=== PATIENT | male | born 1945 | race Caucasian/White ===

== ENCOUNTER 2024-05-16 16:34 | Emergency (ER) | payer OTHER, SELFPAY ==
[2024-05-16 16:40] VITALS: BMI 28.3
[2024-05-16 16:41] VITALS: BP 139/92
--- NOTE | 2024-05-16 16:43 | ED.GENMED ---
History of Present Illness
General
Chief Complaint: Fall
Source: patient
Time Seen by Provider: 05/16/24 16:38
History of Present Illness
History of Present Illness:
78-year-old male brought to the emergency room by ambulance after suffering a fall at his extended care facility. Patient was observed to trip and fall. No loss of consciousness. He does not take any oral anticoagulants. Patient currently
complaining of pain in his left hand. Patient states he is left-handed. He does not recall the fall however. He is at [facility] due to dementia.
Phy Exam
Physical Exam
Physical Exam:
General: Awake, Alert, Oriented to person only. No acute distress, patient does appear confused
Vitals: unremarkable
Head: Atraumatic
Eyes: Pupils equal, EOMI
Throat: Airway intact, no exudates
Neck: Trachea midline, no tenderness to palpation of the cervical spine
Lungs: Clear and equal b/l
Heart: Regular rate, no murmurs
Abd: Soft, Nontender, No pulsatile mass
Neuro: Nonfocal
Skin: Warm, dry, no rash
Extremities: pulses equal b/l, no edema. Ecchymosis and tenderness noted at the base of the left index finger. There is pain with range of motion and palpation
Course
Orders/Labs/Results
Orders:
Orders
05/16/24 16:43
CT Cervical Spine W/o Iv Contr Urgent
Comment:
Reason For Exam: neck pain s/p fall
CT Head W/o Iv Contrast Urgent
Comment:
Reason For Exam: fall head injury
05/16/24 16:44
Finger(s)/Thumb 2 View Lt [CR Finger(s)/thumb Min 2 Vw Lt] Urgent
Comment:
Reason For Exam: pain after fall
Indicate Which Finger:: Index Finger
05/16/24 18:31
Basic Metabolic Panel Urgent
COVID-19 Antigen Urgent
Source: Nasal Swab
Complete Blood Count/With Diff Urgent
Influenza A+B Rapid Molecular Urgent
ALEJANDRO Source: Nasal Swab
Specimen Description:
05/16/24 19:10
Acetaminophen [Tylenol] 650 mg PO NOW STA
05/16/24 19:13
CR Chest - 2 Views Urgent
Comment:
Reason For Exam: fever
05/16/24 20:26
Amoxicillin 875 mg/Clav 125 mg [Augmentin 875 mg/125 mg] 1 tablet PO NOW STA
Abnormal Lab Results
05/16/24
18:31
MCH 31.3 H pg
(27.0-31.0)
Absolute Lymphs (auto) 1.0 L 10^3/uL
(1.2-3.4)
Absolute Monos (auto) 1.0 H 10^3/uL
(0.1-0.6)
Lymphocytes % 13.4 L %
(20.5-51.1)
Monocytes % 13.9 H %
(1.7-9.3)
05/16/24 18:31
05/16/24 18:31
Vital Signs
Initial and Last Documented VS:
Initial Vital Signs
Temp Pulse Resp BP Pulse Ox
99.5 F 76 20 139/92 95
05/16/24 16:41 05/16/24 16:41 05/16/24 16:41 05/16/24 16:41 05/16/24 16:41
Last Documented Vital Signs
Temp Pulse Resp BP Pulse Ox
100.8 F H 82 20 143/127 95
05/16/24 18:37 05/16/24 21:00 05/16/24 16:54 05/16/24 17:00 05/16/24 21:02
MDM/Problems Addressed
Differential Diagnosis Includes:
subdural, subarachnoid, contusion, uti, viral illness
MDM/Problems Addressed:
Patient [facility] with a [facility]. Head CT shows no acute injury to the head or C-spine. Radiology reads the x-ray has a fracture dislocation. Physical exam not really consistent with a dislocation per se as he has range of motion
and is not limited. Perhaps there is a ligamentous injury which causing some instability of the PIP joint however on exam there really does not appear to be a dislocation. Will logan wrap his fingers. Patient actually not very tolerant of any
sort of manipulation of the finger. Patient noted to have a rectal temperature of 100.8. Flu and COVID are negative. Patient was unable to provide urine and given his agitation we will not go so far as to straight cath him. Will cover with
Augmentin for potential bronchitis or pneumonia and/or UTI.
*Radiology
Radiology exam reviewed: radiology read reviewed
*Pulse Oximetry
Patient hypoxic: no
*Critical Care Note
Total Time (30-74mins, 75-104mins- exclusive of procedures): Not Applicable
Patient Management
Social determinants of health affecting care: Living situation
ED Attending Note
-
Portions of this chart may have been created with voice recognition software.� Occasional wrong word or��sound alike� substitutions may have occurred due to the inherent limitations of voice recognition software.
Discharge Plan
Departure
Patient Disposition: Senior Living/SNF
Date of Disposition: 05/16/24
Time of Disposition: 20:27
Condition: Fair
Discharge Problem:
Head injury, Finger sprain, Fever, Pneumonia
Instructions: Head injury in adults, Finger Fracture ED, Pneumonia
Prescriptions:
New
amoxicillin-pot clavulanate 875-125 mg tablet
1 tab PO ONCE Qty: 20 0RF
No Action
acetaminophen 325 mg Tablet
650 mg PO Q6H PRN (Reason: pain)
atorvastatin 20 mg Tablet
20 mg PO HS
cyanocobalamin (vitamin B-12) [Vitamin B-12] 1,000 mcg Tablet
2,000 mcg PO DAILY
amlodipine 5 mg Tablet
5 mg PO DAILY
triamcinolone acetonide 0.1 % Cream
1 applic TOPICAL BID
Rx Instructions:
apply to chest and back topically every morning and at bedtime for rash
lorazepam 0.5 mg Tablet
0.5 mg PO Q12H PRN (Reason: anxiety)
escitalopram oxalate 5 mg Tablet
5 mg PO DAILY
cholecalciferol (vitamin D3) [Vitamin D3] 50 mcg (2,000 unit) Capsule
100 mcg PO HS
memantine 14 mg Capsule,Sprinkle,Er 24hr
14 mg PO DAILY
Adults Multivitamin 18 mg iron-400 mcg-25 mcg Tablet
2 tab PO HS
Referrals:
Evan Soto DO [Family Provider] -
Interventions
Interventions:
*Risk Screen - Suicide Last Done: 05/16/24 16:48
*General Assessment Last Done: 05/16/24 16:48
*Neglect/Abuse Screening Last Done: 05/16/24 16:48
ED- Fall Risk Assessment Last Done: 05/16/24 16:54
*ED COVID-19 Vaccine History Last Done: 05/16/24 16:47
*Nursing Disposition Last Done: 05/16/24 21:02
ED-Musculoskeletal Assessment Last Done: 05/16/24 16:54
ED- Neurological Assessment Last Done: 05/16/24 16:54
ED-Skin Assessment Last Done: 05/16/24 16:54
Discharge Date and Time
Discharge Date/Time: 05/16/24 21:10
Print Language: HEBREW
[2024-05-16 16:54] VITALS: BP 139/92
--- NOTE | 2024-05-16 16:56 | EDRN ---
Dr. Don was at the pts bedside and removed cervical collar that EMS placed
[2024-05-16 17:00] VITALS: BP 143/127
[2024-05-16 18:40] LABS: % Basophils 0.7 % (0-2); % Eosinophils 1.1 % (0-6); % Immature Granulocytes 0.4 % (0-0.5); % Lymphocytes 13.4 % (20.5-51.1); % Monocytes 13.9 % (1.7-9.3); % Neutrophils 70.5 % (42.2-75.2); Absolute Basophils 0.1 10^3/uL (0-0.2); Absolute Eosinophils 0.1 10^3/uL (0-0.7); Absolute Neutrophils 5.2 10^3/uL (1.4-6.5); Hematocrit 44.2 % (39.0-52.0); Hemoglobin 15.2 g/dL (13.0-18.0); Mean Corp Hgb Conc. 34.4 g/dL (33.0-37.0); Mean Corpuscular Hgb 31.3 pg (27.0-31.0); Mean Corpuscular Volume 91.1 fL (80.0-94.0); Mean Platelet Volume 9.9 fL (7.4-10.4); Nucleated Red Blood Cells % 0 % (-); Platelet Count 227 10^3/uL (130-400); Red Blood Cell Count 4.85 10^6/uL (4.70-6.10); Red Cell Dist. Width 13.4 % (11.5-14.5); White Blood Cell Count 7.4 10^3/uL (4.8-10.8)
[2024-05-16 18:57] LABS: COVID-19 Antigen Negative (Negative)
[2024-05-16 19:01] LABS: Blood Urea Nitrogen 19 mg/dl (9-20); Calcium 10.1 mg/dl (8.4-10.2); Carbon Dioxide 25 mmol/L (22-30); Chloride 104 mmol/L (98-107); Estimated Creatinine Clearance 77 ml/min; Glucose 94 mg/dl (70-99); Sodium 139 mmol/L (135-145); eGFR > 60.00
[2024-05-16] MEDS: TYLENOL 650 MG PO (19:16)
[2024-05-16] MEDS: AUGMENTIN 875 MG/125 MG 1 TABLET PO (20:43)
== END 2024-05-16 21:10 ==
LOC: EMR 16:34
PROVIDERS: EMERGENCY PHYSICIAN Emergency Medicine; FAMILY PHYSICIAN Internal Medicine
DX: S09.90XA Unspecified injury of head, initial encounter (principal); S63.611A Unspecified sprain of left index finger, initial encounter; S60.022A Contusion of left index finger without damage to nail, initial encounter; W01.0XXA Fall on same level from slipping, tripping and stumbling without subsequent striking against object, initial encounter; J18.9 Pneumonia, unspecified organism; F03.90 Unspecified dementia, unspecified severity, without behavioral disturbance, psychotic disturbance, mood disturbance, and anxiety
CPT/HCPCS: 99284; 70450; 71046; 72125; 73140; 80048; 85025; 87502; 87811

== ENCOUNTER 2024-06-05 06:13 | Inpatient (IN) | payer OTHER, SELFPAY ==
[2024-06-05] VITALS (12 sets, daily range): BP systolic 122–148; BP diastolic 59–88; BMI 26.2
[2024-06-05 00:44] LABS: % Basophils 0.2 % (0-2); % Eosinophils 0.1 % (0-6); % Immature Granulocytes 2.1 % (0-0.5); % Monocytes 3.5 % (1.7-9.3); % Neutrophils 92.1 % (42.2-75.2); Absolute Immature Granulocytes 0.4 10^3/uL (0-0.05); Absolute Lymphocytes 0.4 10^3/uL (1.2-3.4); Absolute Monocytes 0.7 10^3/uL (0.1-0.6); Hematocrit 46.2 % (39.0-52.0); Mean Corp Hgb Conc. 34.6 g/dL (33.0-37.0); Mean Corpuscular Hgb 31.9 pg (27.0-31.0); Mean Platelet Volume 10.9 fL (7.4-10.4); Nucleated Red Blood Cells % 0 % (-); Platelet Count 264 10^3/uL (130-400); Red Blood Cell Count 5.02 10^6/uL (4.70-6.10); Red Cell Dist. Width 13.6 % (11.5-14.5); White Blood Cell Count 18.4 10^3/uL (4.8-10.8)
[2024-06-05 00:53] LABS: COVID-19 Antigen Negative (Negative)
[2024-06-05 01:05] LABS: ALT (SGPT) 67 U/L (0-50); AST (SGOT) 35 U/L (17-59); Alkaline Phosphatase 99 U/L (38-126); Blood Urea Nitrogen 22 mg/dl (9-20); Calcium 9.2 mg/dl (8.4-10.2); Carbon Dioxide 25 mmol/L (22-30); Chloride 106 mmol/L (98-107); Estimated Creatinine Clearance 94 ml/min; Glucose 159 mg/dl (70-99); Lipase 1127 U/L (23-300); Potassium 4.2 mmol/L (3.5-5.1); Sodium 140 mmol/L (135-145); Total Bilirubin 0.8 mg/dl (0.2-1.3); Total Protein 6.6 g/dl (6.3-8.2); eGFR > 60.00
[2024-06-05 01:24] LABS: Urine Albumin 1+ (Neg - Trace); Urine Bilirubin Negative (Negative); Urine Character Clear (Clear); Urine Color Yellow; Urine Glucose Negative (Negative); Urine Ketone 1+ (Negative); Urine Leukocyte Negative (Negative); Urine Nitrite Negative (Negative); Urine Occult Blood Negative (Negative); Urine Specific Gravity 1.025 (<1.030); Urine Urobilinogen Negative (Neg - 1+)
[2024-06-05 01:50] LABS: Urine Bacteria Moderate (Negative); Urine Mucus Few; Urine Red Blood Cell 0-2 /HPF (0-2); Urine White Cell 0-2 /HPF (0-5)
--- NOTE | 2024-06-05 02:41 | ED.GENMED ---
History of Present Illness
General
Chief Complaint: Abdominal Symptoms
Time Seen by Provider: 06/05/24 02:41
History of Present Illness
History of Present Illness:
TIME OF INITIAL ENCOUNTER: 2:50 AM
HPI: Patient comes in from a memory care unit as he was found to be hypoxic and was vomiting. The patient is a very poor historian. He reportedly is at his baseline mental status. He was found to have vomitus on his T-shirt upon arrival. He did
have a formed bowel movement here.
EXAM:
GENERAL: Appears in no distress
HEENT: Slightly dry oral mucosa
CARDIOVASCULAR: Regular rate and rhythm
PULMONARY: No respiratory distress, breathing is nonlabored, equal and clear breath sounds
ABDOMEN: Soft but mild epigastric tenderness
NEUROLOGIC: He is awake but confused, the patient has evidence of dementia, not oriented to month or place, strength is equal in all extremities
EXTREMITIES: Moves all extremities equally, no tenderness, no edema
PYSCHIATRIC: Very limited historian, poor insight and judgment
NUMBER AND COMPLEXITY OF PROBLEMS ADDRESSED AT THE ENCOUNTER
� Chronic conditions affecting care: Dementia, high blood pressure, hyperlipidemia, anxiety/depression, anemia
� Acute Exacerbation and/or Progression of Chronic Illness: Lives at home
� Differential Diagnosis includes: Pneumonia, aspiration, pancreatitis, bowel obstruction, viral syndrome
AMOUNT AND/OR COMPLEXITY OF DATA TO BE REVIEWED AND ANALYZED
� I performed an independent evaluation of and my interpretation is:
EKG:
CT: CT suggest atelectasis versus infection of the lung bases; CT of the abdomen pelvis relatively unremarkable
X-rays:
Laboratory Studies: White count 18.4, hemoglobin normal, lipase 1127, 1+ ketones, no clear sign of infection on urinalysis
Other:
� Review of other/old records: The patient was seen here after a fall and fever earlier this month
� Clinical information was obtained by an independent historian: [facility] care
� Prescriptions/Medications Considered but not given:
� Further testing considered but not performed:
RISK OF COMPLICATIONS AND/OR MORBIDITY OR MORTALITY OF PATIENT MANAGEMENT
� Social determinants of health affecting care: Resides at [facility]
� Discussion with other providers: Dr. Cerna for admission as patient is hypoxic prior to administration of nasal cannula oxygen
� Escalation of care including admission/observation vs risk of discharge considered: The patient is found to be hypoxic with room air sats of 88%. White count is elevated and CT suggest the possibility of pneumonia at the lung
bases. Placed on antibiotics. CT imaging suggest no sign of pancreatitis however the lipase is over 1100 and he does have some epigastric pain�he was given IV fluids. Will plan to keep in the hospital for further evaluation.
ANY OTHER UPDATES:
Phy Exam
Physical Exam
Physical Exam:
See HPI
Course
Orders/Labs/Results
Orders:
Orders
06/05/24 00:25
COVID-19 Antigen Urgent
Source: Nasal Swab
Complete Blood Count/With Diff Urgent
Comprehensive Metabolic Panel Urgent
Lipase Urgent
Influenza A+B Rapid Molecular Urgent
ALEJANDRO Source: Nasal Swab
Specimen Description:
06/05/24 00:29
CR Chest - 2 Views Urgent
Comment:
Reason For Exam: hypoxia
06/05/24 01:08
Straight cath- Treatment ONCE
06/05/24 01:10
Urinalysis Reflex To Culture Urgent
Date Specimen was Collected: 06/05/24
Time Specimen was Collected: 01:08
Urine Microscopic Reflex Cult Urgent
Urine Culture Urgent
ALEJANDRO Source: U
Specimen Description:
Date Specimen was Collected: 06/05/24
Time Specimen was Collected: 01:08
06/05/24 02:42
CT Chest/abd/pel W Iv Cont Urgent
Comment:
Reason For Exam: sob, elevated lipase, vomiting
06/05/24 02:43
0.9% Sodium Chloride 500 ml [Nss] 500 ml IV BOLUS
06/05/24 04:41
Electrocardiogram (*1) Urgent
Reason for Study: Chest Pain
EKG- Treatment ONCE
06/05/24 04:44
Cefepime HCl [Maxipime] 1,000 mg IV NOW STA
06/05/24 05:09
Sterile Water [Sterile Water For Injection] 10 ml .ROUTE .STK-MED ONE
06/05/24 05:23
Vancomycin [Vancocin] 2,000 mg 0.9% Sodium Chloride 500 ml [Nss] 500 ml IV NOW
06/05/24 05:58
Admit/Transfer Patient As Directed
Co-Sign Provider:
Level of Care: Inpatient admission
Assign to:: Telemetry
Physician / Group: Nehemiah
Diagnosis: Pneumonia, Pancreatitis
Reason for Telemetry: Arrhythmia
Date to Stop Telemetry: 06/08/24
Time to Stop Telemetry: 11:00
Reason for Hospitalization: Pneumonia, Pancreatitis
Expected length of stay greater than two midnights?: Yes
ELOS- Estimated Length of Stay in days: 3
I certify the patient meets the requirements for IP care: Yes
PRN Pain Medication Management As Directed
May give lesser potent ordered pain med per pt: Yes
preference::
Protocol:: Medication orders for pain may be administered in a
manner that supports deferring to patient preference
when the pt is:
- Requesting an ordered lesser potent pain medication.
Least to most potent pain medications are defined
as: acetaminophen < NSAID < tramadol < opioids
(morphine, oxycodone, hydromorphone).
- Requesting a lesser dose of the same medication IF
ORDERED.
- Requesting a less intrusive route of administration
if both routes are prescribed by the provider (PO <
IV).
06/05/24 05:59
Code Status As Directed
Resuscitation Status: Do not resuscitate
Based on pt advanced directive or healthcare POA form: Yes
DNR Bracelet Application ONCE
06/08/24 11:00
DC Protocol for Telemetry ONCE
Abnormal Lab Results
06/05/24 06/05/24
00:25 01:10
WBC 18.4 H 10^3/uL
(4.8-10.8)
MCH 31.9 H pg
(27.0-31.0)
MPV 10.9 H fL
(7.4-10.4)
Abs Immat Gran (auto) 0.4 H 10^3/uL
(0-0.05)
Absolute Neuts (auto) 17.0 H 10^3/uL
(1.4-6.5)
Absolute Lymphs (auto) 0.4 L 10^3/uL
(1.2-3.4)
Absolute Monos (auto) 0.7 H 10^3/uL
(0.1-0.6)
Immature Gran % 2.1 H %
(0-0.5)
Neutrophils % 92.1 H %
(42.2-75.2)
Lymphocytes % 2.0 L %
(20.5-51.1)
BUN 22 H mg/dl
(9-20)
Glucose 159 H mg/dl
(70-99)
ALT 67 H U/L
(0-50)
Lipase 1127 H* U/L
(23-300)
Urine Ketones 1+ A
(Negative)
Urine Bacteria (Reflex) Moderate A
(Negative)
Urine Albumin (Reflex) 1+ A
(Neg - Trace)
06/05/24 00:25
06/05/24 00:25
Vital Signs
Initial and Last Documented VS:
Initial Vital Signs
Temp Pulse Resp BP Pulse Ox
37.4 C 83 23 126/72 88
06/05/24 00:05 06/05/24 00:05 06/05/24 00:05 06/05/24 00:05 06/05/24 00:05
Last Documented Vital Signs
Temp Pulse Resp BP Pulse Ox
37.4 C 87 17 128/78 94
06/05/24 00:05 06/05/24 04:15 06/05/24 04:15 06/05/24 03:00 06/05/24 03:41
*Critical Care Note
Total Time (30-74mins, 75-104mins- exclusive of procedures): Not Applicable
ED Attending Note
-
Portions of this chart may have been created with voice recognition software.� Occasional wrong word or��sound alike� substitutions may have occurred due to the inherent limitations of voice recognition software.
Discharge Plan
Departure
Patient Disposition: Admit
Date of Disposition: 06/05/24
Time of Disposition: 04:47
Presentation/result/management discussed w/ accepting MD/DO: Hospitalist
Discharge Problem:
Pneumonia
Interventions
Interventions:
*Risk Screen - Suicide Last Done: 06/05/24 00:05
*General Assessment Last Done: 06/05/24 00:05
*Neglect/Abuse Screening Last Done: 06/05/24 00:05
ED- Fall Risk Assessment Last Done: 06/05/24 00:34
*ED COVID-19 Vaccine History Last Done: 06/05/24 00:05
HW-Lrfmss-Dotvwfahqd Assessment Last Done: 06/05/24 00:32
ED- Cardiac Assessment Last Done: 06/05/24 00:32
ED- Pulmonary Assessment Last Done: 06/05/24 00:32
[2024-06-05] MEDS: NSS 500 IV (03:39)
[2024-06-05] MEDS: MAXIPIME 1000 MG IV (05:14)
--- NOTE | 2024-06-05 06:05 | HPS.HSE ---
Family Physician
-
Family Physician: Evan Soto
Chief Complaint
-
N/V, Hypoxemia
History of Present Illness
Patient is a 78y M with PMH significant for senile dementia who presents to ED from local memory care unit for evaluation of hypoxemia. [facility] patient developed N/V x 3 episodes this evening. Following this he appeared more SOB and
oxygen saturations were noted to be in the 80s on room air. Patient was transported to the ED for further evaluation.
Patient is unable to contribute further to this history. He will answer questions at times - but accuracy / appropriateness of his answers are highly suspect. Other times he will simply parrot the questioner.
Patient was seen recently in the ED for fever (05/16). He was prescribed Augmentin at that time for a 10 day course for suspected pneumonia.
Medical History
Past Medical History
Past Medical History: Reports Other
Additional Past Medical History:
Senile Dementia
Anxiety / Depression
Hypertension
Past Surgical History: Reports Other
Additional Past Surgical History:
None Known
Social History
Unable to obtain full social history at this time due to: Dementia
Family History
Family History: Unable to Obtain
Allergies / Home Medications
Allergies reflects when Allergies were last updated in [facility].
Home Medications with original date entered in [facility]
Allergy/Medication List:
Allergies
Allergy/AdvReac Type Severity Reaction Status Date / Time
No Known Allergies Allergy Verified 06/05/24 00:04
Home Medications
acetaminophen 325 mg tablet 650 mg PO Q6H PRN pain 05/16/24
amlodipine 5 mg tablet 5 mg PO DAILY 05/16/24
atorvastatin 20 mg tablet 20 mg PO HS 05/16/24
cholecalciferol (vitamin D3) 50 mcg (2,000 unit) capsule (Vitamin D3) 100 mcg PO HS 05/16/24
cyanocobalamin (vitamin B-12) 1,000 mcg tablet (Vitamin B-12) 2,000 mcg PO DAILY 05/16/24
escitalopram oxalate 5 mg tablet 5 mg PO DAILY 05/16/24
lorazepam 0.5 mg tablet 0.5 mg PO Q12H PRN anxiety 05/16/24
memantine 14 mg capsule sprinkle,extended release 24hr 14 mg PO DAILY 05/16/24
multivit with minerals-iron 18 mg-folic ac 400 mcg-vit K 25 mcg tablet (Adults Multivitamin) 2 tab PO HS 05/16/24
triamcinolone acetonide 0.1 % topical cream 1 applic topical BID rash 05/16/24
Review of Systems
-
Unable to obtain full review of systems at this time due to: Dementia
Physical Exam
Vital Signs
Vital Signs
Temp Pulse Resp BP Pulse Ox
99.4 F 87 17 128/78 94
06/05/24 00:05 06/05/24 04:15 06/05/24 04:15 06/05/24 03:00 06/05/24 03:41
Physical Exam
General: Other (78y M awake and alert. Not in evident distress. Follows commands.)
HEENT: Moist mucous membranes and PERRLA
Respiratory: Other (Coarse breath sounds at bases. No wheezes.)
Cardiac: S1/S2, Regular Rhythm and Murmur (II/ DEAN)
GI: Soft, Non Tender, Non Distended and Normal Bowel Sounds
Musculoskeletal: No Clubbing, No Cyanosis and No Edema
Neuro: Awake and Alert; No Oriented
Laboratory Results
-
06/05/24 00:25
06/05/24 00:25
Laboratory Results
Total Bilirubin 0.8 mg/dl (0.2-1.3) 06/05/24 00:25
AST 35 U/L (17-59) 06/05/24 00:25
ALT 67 U/L (0-50) H 06/05/24 00:25
Alkaline Phosphatase 99 U/L (38-126) 06/05/24 00:25
Lipase 1127 U/L (23-300) H* 06/05/24 00:25
Impression/Plan
-
A/P: Patient is a 78y M with PMH significant for dementia who presents from memory care unit this evening for evaluation of N/V and hypoxemia.
Acute Pancreatitis
- Admit for further evaluation and treatment.
- Patient with onset of N/V x multiple episodes this evening.
- No evident abdominal pain / tenderness - though difficult to ascertain history.
- CT A/P unremarkable. Exam unremarkable.
- NPO for now. IVFs. Antiemetics if needed.
- Follow for any recurrent emesis / clinical changes / etc.
- Check US to evaluate for gallstones, etc.
Aspiration Pneumonia / Pneumonitis
Acute Hypoxemic Respiratory Insufficiency secondary to the above
- History suggests aspiration event given hypoxemia s/p episodes of emesis.
- Bibasilar opacities seen on CT.
- Abx for now with ceftriaxone / doxy.
- Supportive care including O2, nebs, etc.
- Aspiration precautions. Speech eval.
- Follow for clinical improvement.
Benign Hypertension
- Stable. Continue current medication with holding parameters.
Senile Dementia
Anxiety / Depression
- Advanced dementia at baseline.
- Continue current medication regimen for memory / mood.
- Follow for agitation / delirium during acute hospitalization.
DVT Prophylaxis: Lovenox
Code Status: DNR
[2024-06-05] MEDS: VANCOCIN 540 MG IV (06:08)
[2024-06-05] MEDS: LR 1000 IV ×2 (10:22→17:44)
[2024-06-05] MEDS: NAMENDA 5 MG PO ×2 (10:27→20:42)
[2024-06-05] MEDS: NORVASC 5 MG PO (10:27)
[2024-06-05] MEDS: VIBRAMYCIN 100 MG PO ×2 (10:28→20:42)
[2024-06-05] MEDS: LEXAPRO 5 MG PO (10:28)
[2024-06-05] MEDS: NSS (PRESERVATIVE FREE) 10 ML IV (10:28)
[2024-06-05] MEDS: PROTONIX IV 40 MG IV (10:28)
[2024-06-05] MEDS: TRIAMCINOLONE ACETONIDE 0.1% CREAM 1 APPLIC TOPICAL ×2 (10:29→20:43)
[2024-06-05] MEDS: FLUSH (NSS) 1 FLUSH IV (10:30)
[2024-06-05] MEDS: ROCEPHIN 1000 MG IV (10:31)
[2024-06-05] MEDS: FLUSH (NSS) 10 FLUSH IV ×2 (10:31→10:32)
[2024-06-05] MEDS: STERILE WATER FOR INJECTION 10 ML IV (10:31)
--- NOTE | 2024-06-05 10:43 | W.PN.HOSP.TC ---
Today's Communication/Plan
-
See plan
Assessment / Plan
Assessment / Plan
Impression:
Patient is a 78y M with PMH significant for dementia who presents from memory care unit this evening for evaluation of N/V and hypoxemia.
Acute hypoxic respiratory failure.
Bilateral pulmonary infiltrates
� Differential diagnosis aspiration pneumonia/pneumonitis, versus atelectasis, versus thromboembolism
Episode of emesis at the assisted living
Elevated lipase with concern for pancreatitis
Other conditions:
Benign hypertension pain
Senile dementia
Anxiety/depression
Plan:
Acute hypoxic respiratory failure
Patient with no distress.
Oxygen saturations down to 85% on room air
Patient is a poor historian, although denies any chest pain, shortness of breath at rest.
Chest x-ray with bibasilar atelectasis also seen on CT scan of the abdomen.
Differential diagnosis aspiration pneumonia/pneumonitis, versus atelectasis, could not exclude thromboembolism given degree of hypoxia out of proportion to imaging findings, no prior history of CHF and no evidence of volume overload
Check cardiac markers including troponin and BNP, check D-dimer
Continue oxygen supplementation.
Empiric antibiotics to cover aspiration: Ceftriaxone/doxycycline.
If indicated consider CT PE
Speech and swallow evaluation
Elevated lipase with no clinical evidence for acute pancreatitis.
Benign abdominal examination and the patient with advanced dementia and who has been limited historian
Normal LFT
No evidence of hepatobiliary abnormalities on imaging including CT scan and ultrasound
Suspect elevated lipase triggered by recurrent emesis
Clear liquid diet
Wean off IV fluids.
Follow LFTs/lipase
Benign Hypertension
- Stable. Continue current medication with holding parameters.
Senile Dementia
Anxiety / Depression
- Advanced dementia at baseline.
- Continue current medication regimen for memory / mood.
- Follow for agitation / delirium during acute hospitalization.
DVT Prophylaxis: Lovenox
Code Status: DNR
Anticipated Discharge: 24 - 48 hours
Subjective/Interval History
-
Date of Service: June 05, 2024
Objective Data
-
Labs:
Laboratory Results
06/05/24
00:25
WBC 18.4 H
Hgb 16.0
Hct 46.2
Plt Count 264
Sodium 140
Potassium 4.2
Chloride 106
Carbon Dioxide 25
BUN 22 H
Creatinine 0.7
Glucose 159 H
Calcium 9.2
Total Bilirubin 0.8
AST 35
ALT 67 H
Alkaline Phosphatase 99
Vital Signs:
Vital Signs
Temp Pulse Resp BP Pulse Ox
98.0 F 84 17 148/77 94
06/05/24 07:16 06/05/24 07:00 06/05/24 07:00 06/05/24 06:00 06/05/24 07:00
Physical Exam
-
General: Well Developed and No Apparent Distress
HEENT: Normocephalic, Atraumatic and Moist Mucous Membranes
Respiratory: Clear to Auscultation
Cardiac: Regular Rhythm and S1/S2; Negative Murmur, Rub or Gallop
GI: Soft, Nontender, Nondistended and Normal Bowel Sounds; Negative Organomegaly
Rectal: Deferred by Provider
Musculoskeletal: No Clubbing, No Cyanosis and No Edema
Skin: Negative Rash
Neuro: Nonfocal/Grossly Intact
--- NOTE | 2024-06-05 10:55 | PTOTSP ---
Speech Language Pathology
Pt seen for clinical bedside swallow evaluation. Set pt up to brush teeth. He was able to brush his own teeth, although perseverating with this. Did not follow directions to spit out water after swishing in oral cavity. P.O. trials of thin
liquids provided (limited to clear liquids per MD at this time). Adequate A-P transit noted with limited consistency with no overt signs of aspiration. Pt is at increased risk for aspiration given cognitive status.
Recommend:
(1) Thin liquids (limited to clear liquids at this time per MD)
(2) Aspiration precautions: full supervision with assist as needed, slow rate
(3) Meds as tolerated
(4) SENIOR [employer]NA[employer]INE[employer]ING to continue to follow once allowed solids
[2024-06-05 11:16] LABS: D-Dimer 0.58 ug/mlFEU (0.00-0.50)
[2024-06-05 12:06] LABS: NT-proBNP 177 pg/ml; Troponin I < 0.012 ng/ml
--- NOTE | 2024-06-05 13:36 | PTCARENOTE ---
Pt confused - oriented to only self. Pt increasingly uncooperative. Took oxygen off and would not let me put back on. Can not reason w/ pt. Pt keeps grabbing my hands and trying to bite me.
--- NOTE | 2024-06-05 13:44 | CM ---
C< spoke with nursing at [facility]
Pt is from their memory care unit
He is AxO to self only, no behaviors
Not very conversational, short responses, able to follow commands
Indep with ambulation and transfers without an AD, no home O2 at baseline
Pt is a 1 personal assist for personal care, mostly cueing
Incontinent of B/B, wears depends
PCP- Evan Soto
Rx- Denzel Zhou
Nursing notes pt can return on dc, even in weakened state
Can return at a 2 person assist if needed if needed
Preferred VN provider is Karl
Call to dtr/Lurdes to introduce self and explain role
TT/Dr Sinha requesting medical update to dtr
Discharge Disposition- return to [facility] memory care likely with Karl, watch O2 needs
[2024-06-05] MEDS: LOVENOX 40 MG SC (17:45)
--- NOTE | 2024-06-05 22:11 | PTCARENOTE ---
Patient removing oxygen tubing Reorientation provided, but not successful. Patient is confused and continues to remove oxygen tubing after education. O@ saturation taken on room air, saturation is 85%. Mitts applied to both hands and oxygen
reapplied. WHEEL MOLDER made aware. See new order for mitts.
[2024-06-06] VITALS (7 sets, daily range): BP systolic 119–155; BP diastolic 67–86; BMI 26.0
[2024-06-06] MEDS: LR 1000 IV ×2 (02:25→07:26)
[2024-06-06] MEDS: ROCEPHIN 1000 MG IV (07:28)
[2024-06-06] MEDS: STERILE WATER FOR INJECTION 10 ML IV (07:28)
[2024-06-06] MEDS: PROTONIX IV 40 MG IV (07:28)
[2024-06-06] MEDS: NORVASC 5 MG PO (07:29)
[2024-06-06] MEDS: NAMENDA 5 MG PO ×2 (07:29→20:15)
[2024-06-06] MEDS: VIBRAMYCIN 100 MG PO ×2 (07:29→20:20)
[2024-06-06] MEDS: NSS (PRESERVATIVE FREE) 10 ML IV (07:29)
[2024-06-06] MEDS: LEXAPRO 5 MG PO (07:29)
[2024-06-06] MEDS: TRIAMCINOLONE ACETONIDE 0.1% CREAM 1 APPLIC TOPICAL ×2 (07:30→20:15)
[2024-06-06] MEDS: FLUSH (NSS) 1 FLUSH IV ×2 (07:32→08:34)
[2024-06-06 07:51] LABS: % Basophils 0.3 % (0-2); % Eosinophils 0.7 % (0-6); % Immature Granulocytes 0.1 % (0-0.5); % Lymphocytes 14.6 % (20.5-51.1); % Monocytes 14.1 % (1.7-9.3); % Neutrophils 70.2 % (42.2-75.2); Absolute Eosinophils 0.1 10^3/uL (0-0.7); Absolute Neutrophils 4.8 10^3/uL (1.4-6.5); Hematocrit 40.5 % (39.0-52.0); Hemoglobin 13.9 g/dL (13.0-18.0); Mean Corp Hgb Conc. 34.3 g/dL (33.0-37.0); Mean Corpuscular Volume 93.3 fL (80.0-94.0); Nucleated Red Blood Cells % 0 % (-); Platelet Count 203 10^3/uL (130-400); Red Blood Cell Count 4.34 10^6/uL (4.70-6.10); Red Cell Dist. Width 13.5 % (11.5-14.5); White Blood Cell Count 6.8 10^3/uL (4.8-10.8)
--- NOTE | 2024-06-06 15:12 | PTOTSP ---
Dysphagia Therapy
Impression: Patient with behaviors (i.e., use of large bolus size with solids) when self-feeding that elevate risk for dysphagia. Infrequent signs concerning for possible aspiration noted with thin liquids (i.e., cough x1 with thin via cup, cannot
distinguish between aspiration vs cough from PNA at the bedside.)
Plan of care:
1. Regular, Thin Liquids
2. Medications as best tolerated (cut in puree today per RN)
3. Strategies: full supervision, assist to cut foods into bite sized pieces and self-feed, small sips/bites, slow rate, ensure patient swallows before next sip/bite
4. Dysphagia therapy at the acute care level to determine if diet level appropriate, consider video swallow study to objectively assess swallow function given advanced dementia and elevated risk for change to sensory response to aspiration
--- NOTE | 2024-06-06 15:13 | W.PN.HOSP.TC ---
Today's Communication/Plan
-
Continue antibiotics.
Attempt to wean off oxygen as tolerated
Advance diet with aspiration precautions per
Follow CMP and lipase
Assessment / Plan
Assessment / Plan
Impression:
Patient is a 78y M with PMH significant for dementia who presents from memory care unit this evening for evaluation of N/V and hypoxemia.
Acute hypoxic respiratory failure.
Aspiration pneumonia/pneumonitis bilateral pulmonary infiltrates
Episode of emesis at the assisted living
Elevated lipase with concern for pancreatitis
Other conditions:
Benign hypertension pain
Senile dementia
Anxiety/depression
Plan:
Acute hypoxic respiratory failure secondary to
Aspiration pneumonia and pneumonitis
Patient with no distress.
Hypoxemia with oxygen saturations down to 85% on room air improving and currently downgraded from 6 to 3 L of nasal cannula oxygen
Patient is a poor historian, although denies any chest pain, shortness of breath at rest.
Chest x-ray with bibasilar atelectasis also seen on CT scan of the abdomen.
Volume status compensated, negative cardiac markers leaning away from CHF decompensation or thromboembolism
Empiric antibiotics to cover aspiration: Ceftriaxone/doxycycline.
Speech and swallow evaluation appreciated
Elevated lipase with no clinical evidence for acute pancreatitis.
Benign abdominal examination and the patient with advanced dementia and who has been limited historian
Normal LFT
No evidence of hepatobiliary abnormalities on imaging including CT scan and ultrasound
Suspect elevated lipase triggered by recurrent emesis
Clear liquid diet
Wean off IV fluids.
Follow LFTs/lipase
Benign Hypertension
- Stable. Continue current medication with holding parameters.
Senile Dementia
Anxiety / Depression
- Advanced dementia at baseline.
- Continue current medication regimen for memory / mood.
- Follow for agitation / delirium during acute hospitalization.
DVT Prophylaxis: Lovenox
Code Status: DNR
Anticipated Discharge: 24 - 48 hours
Subjective/Interval History
-
Date of Service: June 06, 2024
Objective Data
-
Labs:
Laboratory Results
06/06/24
06:40
WBC 6.8
Hgb 13.9
Hct 40.5
Plt Count 203 D
Sodium Pending
Potassium Pending
Chloride Pending
Carbon Dioxide Pending
BUN Pending
Creatinine Pending
Glucose Pending
Calcium Pending
Total Bilirubin Pending
AST Pending
ALT Pending
Alkaline Phosphatase Pending
Vital Signs:
Vital Signs
Temp Pulse Resp BP Pulse Ox
99.1 F 83 20 119/75 96
06/06/24 15:08 06/06/24 15:08 06/06/24 15:08 06/06/24 15:08 06/06/24 15:08
Physical Exam
-
General: Well Developed and No Apparent Distress
HEENT: Normocephalic, Atraumatic and Moist Mucous Membranes
Respiratory: Clear to Auscultation
Cardiac: Regular Rhythm and S1/S2; Negative Murmur, Rub or Gallop
GI: Soft, Nontender, Nondistended and Normal Bowel Sounds; Negative Organomegaly
Rectal: Deferred by Provider
Musculoskeletal: No Clubbing, No Cyanosis and No Edema
Skin: Negative Rash
Neuro: Nonfocal/Grossly Intact
[2024-06-06 15:29] LABS: ALT (SGPT) 49 U/L (0-50); AST (SGOT) 31 U/L (17-59); Albumin 3.3 g/dl (3.5-5.0); Alkaline Phosphatase 78 U/L (38-126); Blood Urea Nitrogen 13 mg/dl (9-20); Calcium 8.6 mg/dl (8.4-10.2); Carbon Dioxide 27 mmol/L (22-30); Chloride 103 mmol/L (98-107); Estimated Creatinine Clearance 110 ml/min; Glucose 87 mg/dl (70-99); Lipase 41 U/L (23-300); Potassium 3.8 mmol/L (3.5-5.1); Sodium 136 mmol/L (135-145); Total Bilirubin 0.5 mg/dl (0.2-1.3); Total Protein 5.6 g/dl (6.3-8.2); eGFR > 60.00
[2024-06-06 15:41] LABS: Direct Bilirubin 0.1 mg/dl (0.0-0.4)
[2024-06-06] MEDS: LOVENOX 40 MG SC (17:02)
[2024-06-07 03:10] VITALS: BP 128/79
[2024-06-07 06:00] VITALS: BMI 25.4
[2024-06-07 07:15] VITALS: BP 155/86
[2024-06-07] MEDS: LEXAPRO 5 MG PO (09:10)
[2024-06-07] MEDS: NSS (PRESERVATIVE FREE) 10 ML IV (09:10)
[2024-06-07] MEDS: VIBRAMYCIN 100 MG PO ×2 (09:10→19:39)
[2024-06-07] MEDS: PROTONIX IV 40 MG IV (09:10)
[2024-06-07] MEDS: NORVASC 5 MG PO (09:11)
[2024-06-07] MEDS: NAMENDA 5 MG PO ×2 (09:12→19:39)
[2024-06-07] MEDS: TRIAMCINOLONE ACETONIDE 0.1% CREAM 1 APPLIC TOPICAL ×2 (09:12→19:39)
[2024-06-07] MEDS: STERILE WATER FOR INJECTION 10 ML IV (10:14)
[2024-06-07] MEDS: ROCEPHIN 1000 MG IV (10:14)
[2024-06-07] MEDS: FLUSH (NSS) 1 FLUSH IV ×2 (10:14→10:15)
--- NOTE | 2024-06-07 10:23 | PN.CDI ---
Addendum entered and electronically signed by Sal Sinha MD 06/12/24 16:53:
No evidence for acute encephalopathy. Patient is demented with cognitive status at the baseline. No further clarification required.
Original Note:
CDI
- -
CDI:
Physician Documentation Request
Admit Date: 06/05/24 06:13
Dear Doctor Bharath,
Please review the following and provide your response in the progress notes.
Clinical Indicators:
Pt admitted with Aspiration Pneumonia /Acute Hypoxic Respiratory failure /HX of senile Dementia
Pt care note 06/05 @1336,' Pt confused - oriented to only self. Pt increasingly uncooperative. Took oxygen off and would not let me put back on. Can not reason w/ pt. Pt keeps grabbing my hands and trying to bite me.'
Pt care note 06/05 @ 2471,' Patient removing oxygen tubing Reorientation provided, but not successful. Patient is confused and continues to remove oxygen tubing after education. O2 saturation taken on room air, saturation is 85%. Mitts applied to
both hands and oxygen reapplied. SPACE OFFICER made aware. See new order for mitts. '
Based on the above, could you clarify in the Progress Notes and Discharge Summary which, if any of the following, is the most likely etiology of the confusion/altered mental status.
Metabolic Encephalopathy/ Dementia with Behavioral disturbances
Dementia with behavioral Disturbances
Other ( please specify)
Use of terms such as suspected, likely, concern for, or probable (associated with a specific diagnosis that is being evaluated, monitored, or treated as if it exists) are acceptable and can be coded in the inpatient setting, when documented at the
time of discharge.
Thank you,
Carla Martinez RN
CDI Specialist
[facility]
Please use your independent medical judgment in providing your response.
[2024-06-07 11:08] VITALS: BP 112/68
[2024-06-07 15:02] VITALS: BP 138/67
--- NOTE | 2024-06-07 15:31 | CM ---
it communications manager reviewed patient's chart and spoke with patient's daughter Jorge at [facility] [phone] and plan is for patient to return to [facility] when stable, plan will need to set up [facility] at discharge, patient
may need oxygen and bilingual case manager spoke with [employer] company and patient will qualify for home oxygen with Pneumonia and Hypoxia diagnosis.
Plan; [employer] for home oxygen
[facility]
[phone]
[2024-06-07] MEDS: LOVENOX 40 MG SC (17:11)
--- NOTE | 2024-06-07 17:20 | W.PN.HOSP.TC ---
Today's Communication/Plan
-
Continue current antibiotics
Aspiration precautions
Attempt to wean O2 as tolerates
Assessment / Plan
Assessment / Plan
Impression:
Patient is a 78y M with PMH significant for dementia who presents from memory care unit this evening for evaluation of N/V and hypoxemia.
Acute hypoxic respiratory failure.
Aspiration pneumonia/pneumonitis bilateral pulmonary infiltrates
Episode of emesis at the assisted living
Elevated lipase with concern for pancreatitis
Other conditions:
Benign hypertension pain
Senile dementia
Anxiety/depression
Plan:
Acute hypoxic respiratory failure secondary to
Aspiration pneumonia and pneumonitis
Patient with no distress.
Hypoxemia with oxygen saturations down to 85% on room air improving and currently downgraded from 6 to 3 L of nasal cannula oxygen
Patient is a poor historian, although denies any chest pain, shortness of breath at rest.
Chest x-ray with bibasilar atelectasis also seen on CT scan of the abdomen.
Repeated CT scan on 06/07 with bilateral lower lobe infiltrates and hilar adenopathy likely consistent with pneumonia.
Volume status compensated, negative cardiac markers leaning away from CHF decompensation or thromboembolism
Empiric antibiotics to cover aspiration: Ceftriaxone/doxycycline.
Speech and swallow evaluation appreciated
Elevated lipase with no clinical evidence for acute pancreatitis.
Benign abdominal examination and the patient with advanced dementia and who has been limited historian
Normal LFT
No evidence of hepatobiliary abnormalities on imaging including CT scan and ultrasound
Suspect elevated lipase triggered by recurrent emesis
Clear liquid diet
Wean off IV fluids.
Follow LFTs/lipase
Benign Hypertension
- Stable. Continue current medication with holding parameters.
Senile Dementia
Anxiety / Depression
- Advanced dementia at baseline.
- Continue current medication regimen for memory / mood.
- Follow for agitation / delirium during acute hospitalization.
DVT Prophylaxis: Lovenox
Code Status: DNR
Anticipated Discharge: 24 - 48 hours
Subjective/Interval History
-
Date of Service: June 07, 2024
Objective Data
-
Vital Signs:
Vital Signs
Temp Pulse Resp BP Pulse Ox
97.6 F 62 14 138/67 94
06/07/24 15:02 06/07/24 15:02 06/07/24 15:02 06/07/24 15:02 06/07/24 15:02
I&O
06/06/24 06/07/24 06/08/24
06:59 06:59 06:59
Intake Total 840 / 840
Balance 840 / 840
Physical Exam
-
General: Well Developed and No Apparent Distress
HEENT: Normocephalic, Atraumatic and Moist Mucous Membranes
Respiratory: Clear to Auscultation
Cardiac: Regular Rhythm and S1/S2; Negative Murmur, Rub or Gallop
GI: Soft, Nontender, Nondistended and Normal Bowel Sounds; Negative Organomegaly
Rectal: Deferred by Provider
Musculoskeletal: No Clubbing, No Cyanosis and No Edema
Skin: Negative Rash
Neuro: Nonfocal/Grossly Intact
[2024-06-07 19:30] VITALS: BP 133/58
--- NOTE | 2024-06-07 21:55 | VATNOTE ---
called to reinsert new IV site for Tele as pt removed BOTH IV sites tonight. Pt. extremely agitated and would not cooperate with this VAT RN to reinsert IV. Instructed Dev VILLALTA that when pt. calms down after po ativan, call VAT for restart. Pt.
currently with no iv meds or iv fluids. pt picking at left elbow foam dsg. while this VAT RN was in room.
[2024-06-07] MEDS: ZYPREXA 5 MG IM (22:14)
[2024-06-07] MEDS: STERILE WATER FOR INJECTION 2.1 ML IM (22:15)
--- NOTE | 2024-06-07 22:32 | PTCARENOTE ---
Pt removed 2 IV sites, alarm security or surveillance monitor and O2 and refuses to allow re-application, becoming agitated and attempting to push, bite at staff approaching him. House SERVICE LINE BUS CLEANER made aware and order for mitts, zyprexa received and pt medicated per order and
restraints applied per order.
[2024-06-07 23:45] VITALS: BP 155/78
[2024-06-08] VITALS (8 sets, daily range): BP systolic 124–182; BP diastolic 68–89; BMI 24.3
[2024-06-08] MEDS: TRIAMCINOLONE ACETONIDE 0.1% CREAM 1 APPLIC TOPICAL ×2 (07:54→20:00)
[2024-06-08] MEDS: NORVASC PO (07:54)
[2024-06-08] MEDS: LEXAPRO PO (07:54)
[2024-06-08] MEDS: VIBRAMYCIN PO (07:54)
[2024-06-08] MEDS: NAMENDA PO (07:55)
[2024-06-08] MEDS: NSS (PRESERVATIVE FREE) 10 ML IV (07:55)
[2024-06-08] MEDS: PROTONIX IV 40 MG IV (07:56)
[2024-06-08] MEDS: STERILE WATER FOR INJECTION 10 ML IV (09:18)
[2024-06-08] MEDS: ROCEPHIN 1000 MG IV (09:19)
[2024-06-08] MEDS: FLUSH (NSS) 1 FLUSH IV ×2 (09:19)
[2024-06-08] MEDS: NORVASC 5 MG PO (09:27)
[2024-06-08] MEDS: NAMENDA 5 MG PO ×2 (09:27→19:48)
[2024-06-08] MEDS: VIBRAMYCIN 100 MG PO ×2 (09:27→19:49)
[2024-06-08] MEDS: LEXAPRO 5 MG PO (09:28)
--- NOTE | 2024-06-08 11:34 | CM ---
Chart reviewed and restraints have been placed, patient remains on oxygen at 3 liters, 93%, plan will be for patient to return to [facility], personal care unit, therapeutic case manager spoke with Liz [phone] in admissions at [facility],
patient will need oxygen testing completed, and therapeutic case manager did reach out to [facility] and initiate a referral.
Plan; Patient to return to [facility] when stable
Report [phone]
--- NOTE | 2024-06-08 16:51 | W.PN.HOSP.TC ---
Today's Communication/Plan
-
Respiratory status relatively stable while on 3 L of nasal cannula oxygen
Continue IV antibiotics covering aspiration pneumonia
Monitor for recurrent delirium. Protective intervention. Reorient. Avoid further sedation. Patient remains extremely somnolent following recent dose of Zyprexa. Continue preadmission lorazepam as needed.
Plan of care discussed with patient's daughter at the bedside.
Assessment / Plan
Assessment / Plan
Impression:
Patient is a 78y M with PMH significant for dementia who presents from memory care unit this evening for evaluation of N/V and hypoxemia.
Acute hypoxic respiratory failure.
Aspiration pneumonia/pneumonitis bilateral pulmonary infiltrates
Episode of emesis at the assisted living
Elevated lipase with concern for pancreatitis
Hospital-acquired delirium
Other conditions:
Benign hypertension pain
Senile dementia
Anxiety/depression
Plan:
Acute hypoxic respiratory failure secondary to
Aspiration pneumonia and pneumonitis
Patient with no distress.
Hypoxemia with oxygen saturations down to 85% on room air improving and currently downgraded from 6 to 3 L of nasal cannula oxygen
Patient is a poor historian, although denies any chest pain, shortness of breath at rest.
Chest x-ray with bibasilar atelectasis also seen on CT scan of the abdomen.
Repeated CT scan on 06/07 with bilateral lower lobe infiltrates and hilar adenopathy likely consistent with pneumonia.
Volume status compensated, negative cardiac markers leaning away from CHF decompensation or thromboembolism
Empiric antibiotics to cover aspiration: Ceftriaxone/doxycycline.
Speech and swallow evaluation appreciated
Elevated lipase with no clinical evidence for acute pancreatitis.
Benign abdominal examination and the patient with advanced dementia and who has been limited historian
Normal LFT
No evidence of hepatobiliary abnormalities on imaging including CT scan and ultrasound
Suspect elevated lipase triggered by recurrent emesis
Clear liquid diet
Wean off IV fluids.
Follow LFTs/lipase
Hospital-acquired delirium. Significantly agitated on 06/07. Required single dose of Zyprexa.
Avoid oversedation
Benign Hypertension
- Stable. Continue current medication with holding parameters.
Senile Dementia
Anxiety / Depression
- Advanced dementia at baseline.
- Continue current medication regimen for memory / mood.
- Follow for agitation / delirium during acute hospitalization.
DVT Prophylaxis: Lovenox
Code Status: DNR
Anticipated Discharge: > 48 hours
Subjective/Interval History
-
Date of Service: June 08, 2024
Objective Data
-
Vital Signs:
Vital Signs
Temp Pulse Resp BP Pulse Ox
97.4 F 68 18 173/89 93
06/08/24 15:42 06/08/24 15:42 06/08/24 15:42 06/08/24 15:42 06/08/24 15:42
I&O
06/07/24 06/08/24 06/09/24
06:59 06:59 06:59
Intake Total 840 / 840 840 / 840
Balance 840 / 840 840 / 840
Physical Exam
-
General: Well Developed and No Apparent Distress
HEENT: Normocephalic, Atraumatic and Moist Mucous Membranes
Respiratory: Clear to Auscultation
Cardiac: Regular Rhythm and S1/S2; Negative Murmur, Rub or Gallop
GI: Soft, Nontender, Nondistended and Normal Bowel Sounds; Negative Organomegaly
Rectal: Deferred by Provider
Musculoskeletal: No Clubbing, No Cyanosis and No Edema
Skin: Negative Rash
Neuro: Nonfocal/Grossly Intact
[2024-06-08] MEDS: LOVENOX 40 MG SC (17:10)
[2024-06-09 03:24] VITALS: BP 149/87
[2024-06-09 06:00] VITALS: BMI 24.3
[2024-06-09 07:50] VITALS: BP 145/76
--- NOTE | 2024-06-09 10:51 | W.PN.HOSP.TC ---
Today's Communication/Plan
-
Cont to wean o2 as tolerated
IV abx
monitor po tolerance
monitor mentation
Monitor for recurrent delirium. Protective intervention. Reorient. Avoid further sedation. Continue preadmission lorazepam as needed
Assessment / Plan
Assessment / Plan
Impression:
Patient is a 78y M with PMH significant for dementia who presents from memory care unit this evening for evaluation of N/V and hypoxemia.
Acute hypoxic respiratory failure.
Aspiration pneumonia/pneumonitis bilateral pulmonary infiltrates
Episode of emesis at the assisted living
Elevated lipase with concern for pancreatitis
Hospital-acquired delirium
Other conditions:
Benign hypertension pain
Senile dementia
Anxiety/depression
Plan:
Acute hypoxic respiratory failure secondary to
Aspiration pneumonia and pneumonitis
Patient with no distress.
Hypoxemia with oxygen saturations down to 85% on room air improving and currently downgraded from 6 to 3 L to 2.5 of nasal cannula oxygen
Patient is a poor historian, although denies any chest pain, shortness of breath at rest.
Chest x-ray with bibasilar atelectasis also seen on CT scan of the abdomen.
Repeated CT scan on 06/07 with bilateral lower lobe infiltrates and hilar adenopathy likely consistent with pneumonia.
Volume status compensated, negative cardiac markers leaning away from CHF decompensation or thromboembolism
Empiric antibiotics to cover aspiration: Ceftriaxone/doxycycline.
Speech and swallow evaluation appreciated
Elevated lipase with no clinical evidence for acute pancreatitis.
Benign abdominal examination and the patient with advanced dementia and who has been limited historian
Normal LFT
No evidence of hepatobiliary abnormalities on imaging including CT scan and ultrasound
Suspect elevated lipase triggered by recurrent emesis
Clear liquid diet
Wean off IV fluids.
Follow LFTs/lipase
Hospital-acquired delirium. Significantly agitated on 06/07. Required single dose of Zyprexa.
Avoid oversedation
Benign Hypertension
- Stable. Continue current medication with holding parameters.
Senile Dementia
Anxiety / Depression
- Advanced dementia at baseline.
- Continue current medication regimen for memory / mood.
- Follow for agitation / delirium during acute hospitalization.
DVT Prophylaxis: Lovenox
Code Status: DNR
Anticipated Discharge: 24 - 48 hours
Subjective/Interval History
-
Date of Service: June 09, 2024
remains confused
on oxygen
states had bm yesterday
Objective Data
-
Vital Signs:
Vital Signs
Temp Pulse Resp BP Pulse Ox
97.7 F 59 18 145/76 97
06/09/24 07:50 06/09/24 07:50 06/09/24 07:50 06/09/24 07:50 06/09/24 07:50
I&O
06/08/24 06/09/24 06/10/24
06:59 06:59 06:59
Intake Total 840 / 840 480 / 480
Balance 840 / 840 480 / 480
Physical Exam
-
General: Well Developed and No Apparent Distress
HEENT: Normocephalic, Atraumatic, Moist Mucous Membranes and Oxygen
Respiratory: Decreased Breath Sounds
Cardiac: Regular Rhythm and S1/S2; Negative Murmur, Rub or Gallop
GI: Soft, Nontender, Nondistended and Normal Bowel Sounds; Negative Organomegaly
Rectal: Deferred by Provider
Musculoskeletal: No Clubbing, No Cyanosis and No Edema
Skin: Negative Rash
Neuro: Awake, No Motor Deficits and Nonfocal/Grossly Intact
Psych: Calm and Apparent Dementia
[2024-06-09] MEDS: LEXAPRO 5 MG PO (10:57)
[2024-06-09] MEDS: NORVASC 5 MG PO (10:57)
[2024-06-09] MEDS: DESENEX/MITRAZOL/ZEASORB 1 APPLIC TOPICAL ×2 (11:01→20:48)
[2024-06-09] MEDS: VIBRAMYCIN 100 MG PO ×2 (11:04→20:47)
[2024-06-09] MEDS: NAMENDA 5 MG PO ×2 (11:04→20:46)
[2024-06-09 11:05] VITALS: BP 135/59
[2024-06-09] MEDS: TRIAMCINOLONE ACETONIDE 0.1% CREAM 1 APPLIC TOPICAL ×2 (11:05→20:48)
[2024-06-09] MEDS: STERILE WATER FOR INJECTION IV (11:07)
[2024-06-09] MEDS: NSS (PRESERVATIVE FREE) IV (11:07)
[2024-06-09] MEDS: FLUSH (NSS) IV ×2 (11:10→11:12)
[2024-06-09 14:59] VITALS: BP 114/60
[2024-06-09] MEDS: LOVENOX SC ×2 (18:36→18:39)
--- NOTE | 2024-06-09 19:37 | PTCARENOTE ---
Assumed care of pt from previous nurse. Pt denies pain. Pt on and off agitated, able to re-approach with positive results. call ceballos is within reach, pt does not ring john. rounding and call ceballos in place.
[2024-06-09 20:04] VITALS: BP 150/65
--- NOTE | 2024-06-09 21:05 | PTCARENOTE ---
Pt. was 94% on RA, weaned off 1 L.
[2024-06-09 23:41] VITALS: BP 148/69
[2024-06-10 03:05] VITALS: BP 142/74
[2024-06-10 07:00] VITALS: BP 136/70
[2024-06-10 09:06] LABS: % Basophils 0.4 % (0-2); % Eosinophils 4.9 % (0-6); % Immature Granulocytes 0.4 % (0-0.5); % Lymphocytes 16.4 % (20.5-51.1); % Monocytes 9.5 % (1.7-9.3); % Neutrophils 68.4 % (42.2-75.2); Absolute Eosinophils 0.4 10^3/uL (0-0.7); Absolute Lymphocytes 1.2 10^3/uL (1.2-3.4); Absolute Monocytes 0.7 10^3/uL (0.1-0.6); Absolute Neutrophils 5.1 10^3/uL (1.4-6.5); Hematocrit 43.6 % (39.0-52.0); Hemoglobin 15.2 g/dL (13.0-18.0); Mean Corp Hgb Conc. 34.9 g/dL (33.0-37.0); Mean Corpuscular Hgb 31.7 pg (27.0-31.0); Mean Corpuscular Volume 90.8 fL (80.0-94.0); Mean Platelet Volume 10.2 fL (7.4-10.4); Nucleated Red Blood Cells % 0 % (-); Platelet Count 223 10^3/uL (130-400); Red Cell Dist. Width 12.8 % (11.5-14.5); White Blood Cell Count 7.4 10^3/uL (4.8-10.8)
[2024-06-10] MEDS: LEXAPRO 5 MG PO (09:07)
[2024-06-10] MEDS: NAMENDA 5 MG PO (09:07)
[2024-06-10] MEDS: NORVASC 5 MG PO (09:08)
[2024-06-10] MEDS: ROCEPHIN 1000 MG IV (09:09)
[2024-06-10] MEDS: STERILE WATER FOR INJECTION 10 ML IV (09:09)
[2024-06-10] MEDS: VIBRAMYCIN 100 MG PO (09:09)
[2024-06-10] MEDS: DESENEX/MITRAZOL/ZEASORB 1 APPLIC TOPICAL (09:10)
[2024-06-10] MEDS: TRIAMCINOLONE ACETONIDE 0.1% CREAM 1 APPLIC TOPICAL (09:10)
[2024-06-10 09:13] LABS: Blood Urea Nitrogen 22 mg/dl (9-20); Calcium 9.2 mg/dl (8.4-10.2); Carbon Dioxide 32 mmol/L (22-30); Chloride 100 mmol/L (98-107); Estimated Creatinine Clearance 82 ml/min; Glucose 96 mg/dl (70-99); Potassium 3.7 mmol/L (3.5-5.1); Sodium 136 mmol/L (135-145); eGFR > 60.00
--- NOTE | 2024-06-10 11:21 | W.PN.HOSP.TC ---
Today's Communication/Plan
-
dc to [facility] if bed available
off oxygen
tolerating diet
Assessment / Plan
Assessment / Plan
Impression:
Patient is a 78y M with PMH significant for dementia who presents from memory care unit this evening for evaluation of N/V and hypoxemia.
Acute hypoxic respiratory failure.
Aspiration pneumonia/pneumonitis bilateral pulmonary infiltrates
Episode of emesis at the assisted living
Elevated lipase with concern for pancreatitis
Hospital-acquired delirium
Other conditions:
Benign hypertension pain
Senile dementia
Anxiety/depression
Plan:
Acute hypoxic respiratory failure secondary to
Aspiration pneumonia and pneumonitis
Patient with no distress.
Hypoxemia with oxygen saturations down to 85% on room air improving and currently downgraded from 6 to 3 L to 2.5 of nasal cannula oxygen to room air
Patient is a poor historian, although denies any chest pain, shortness of breath at rest.
Chest x-ray with bibasilar atelectasis also seen on CT scan of the abdomen.
Repeated CT scan on 06/07 with bilateral lower lobe infiltrates and hilar adenopathy likely consistent with pneumonia.
Volume status compensated, negative cardiac markers leaning away from CHF decompensation or thromboembolism
Empiric antibiotics to cover aspiration: Ceftriaxone/doxycycline. Completed course.
Speech and swallow evaluation appreciated
Elevated lipase with no clinical evidence for acute pancreatitis.
Benign abdominal examination and the patient with advanced dementia and who has been limited historian
Normal LFT
No evidence of hepatobiliary abnormalities on imaging including CT scan and ultrasound
Suspect elevated lipase triggered by recurrent emesis
Tolerating diet.
off IV fluids.
Follow LFTs/lipase
Tolerating diet without difficulty.
Hospital-acquired delirium. Significantly agitated on 06/07. Required single dose of Zyprexa.
Avoid oversedation
Benign Hypertension
- Stable. Continue current medication with holding parameters.
Senile Dementia
Anxiety / Depression
- Advanced dementia at baseline.
- Continue current medication regimen for memory / mood. Mentation stable without agitation currently.
- Follow for agitation / delirium during acute hospitalization.
DVT Prophylaxis: Lovenox
Code Status: DNR
Anticipated Discharge: Today
Subjective/Interval History
-
Date of Service: June 10, 2024
Eating breakfast
On room air
Denies abdominal pain
Afebrile
Objective Data
-
Labs:
Laboratory Results
06/10/24
08:51
WBC 7.4
Hgb 15.2
Hct 43.6
Plt Count 223
Sodium 136
Potassium 3.7
Chloride 100
Carbon Dioxide 32 H
BUN 22 H
Creatinine 0.8
Glucose 96
Calcium 9.2
Vital Signs:
Vital Signs
Temp Pulse Resp BP Pulse Ox
97.6 F 78 18 136/70 92
06/10/24 07:00 06/10/24 09:08 06/10/24 07:00 06/10/24 09:08 06/10/24 07:00
I&O
06/09/24 06/10/24 06/11/24
06:59 06:59 06:59
Intake Total 480 / 480 590 / 590
Balance 480 / 480 590 / 590
Physical Exam
-
General: Well Developed and No Apparent Distress
HEENT: Normocephalic, Atraumatic and Moist Mucous Membranes
Respiratory: Decreased Breath Sounds
Cardiac: Regular Rhythm and S1/S2; Negative Murmur, Rub or Gallop
GI: Soft, Nontender, Nondistended and Normal Bowel Sounds; Negative Organomegaly
Rectal: Deferred by Provider
Musculoskeletal: No Clubbing, No Cyanosis and No Edema
Skin: Negative Rash
Neuro: Awake, No Motor Deficits and Nonfocal/Grossly Intact
Psych: Calm and Apparent Dementia
--- NOTE | 2024-06-10 12:01 | CM ---
Addendum entered by Suzy Rodriguez 06/10/24 12:04:
Patient is off oxygen.
Original Note:
division operations manager received a call from physician that kev is cleared for discharge today, call placed to Liz at [facility] no answer message left on voice mail
Plan: Patient to return to [facility] waiting on a call from admissions.
Report [phone]
--- NOTE | 2024-06-10 12:07 | PTCARENOTE ---
Assumed care of pt from previous nurse. Pt denies pain. pt off 0xygen, sating at 94%. Pt for possible dc today.
--- NOTE | 2024-06-10 12:48 | W.DCSUMMARY ---
Discharge Summary
Discharge Data
Date of Admission: 06/05/24
Date of Discharge: 06/10/24
-
Pending Results: No
Hospital Course
78 yo male past medical history of hypertension, dementia, anxiety, depression was presenting from [facility] with nausea, vomiting and new onset of hypoxemia. Patient underwent extensive imaging of the chest abdomen pelvis and abdominal
ultrasound. CT chest was negative for pulmonary embolism. Patient was found to have a elevated lipase. It was concern for pancreatitis however CAT scan was negative. Patient also with infiltrate on the examination. Patient was on IV
antibiotics. Patient was weaned off the oxygen to room air. Patient was comfortable on room air. Patient completed course of antibiotics. Patient lipase down trended. Elevation of lipase could have been due to nausea and vomiting. Patient was
tolerating diet without any difficulty. Diet was advanced to liquid to regular diet/low-fat. IV fluid was discontinued. Patient was tolerating diet without any difficulty. Patient was stable on room air. Patient had episode of severe agitation
required Zyprexa x 1 dose. Subsequently afterwards patient was calm. Patient was continued on his regular outpatient regimen. Patient was tolerating diet without difficulty. Patient was stable on room air. Patient be discharged back to [facility].
Discharge Plan
-
Patient Disposition: Jail/SNF
Discharge Diagnosis/Procedures: Acute hypoxic respiratory failure
Aspiration pneumonia/pneumonitis
Vomiting
Elevated lipase
Condition: Fair
Diet: Low Fat and Low Cholesterol
Additional Diets: Plan of care:
1. Regular, Thin Liquids
2. Medications as best tolerated (cut in puree today per RN)
3. Strategies: full supervision, assist to cut foods into bite sized pieces and self-feed, small sips/bites, slow rate, ensure patient swallows before next sip/bite
4. Dysphagia therapy at the acute care level to determine if diet level appropriate, consider video swallow study to objectively assess swallow function given advanced dementia and elevated risk for change to sensory response to aspiration
Activity: With assistance and As tolerated
Driving Restrictions: No driving
Referrals:
Evan Soto DO [Family Provider] - in less than 1 week
Prescriptions:
Continued
acetaminophen 325 mg Tablet
650 mg PO Q6H PRN (Reason: pain)
atorvastatin 20 mg Tablet
20 mg PO HS
cyanocobalamin (vitamin B-12) [Vitamin B-12] 1,000 mcg Tablet
2,000 mcg PO DAILY
amlodipine 5 mg Tablet
5 mg PO DAILY
triamcinolone acetonide 0.1 % Cream
1 applic TOPICAL BID
Rx Instructions:
apply to chest and back topically every morning and at bedtime for rash
lorazepam 0.5 mg Tablet
0.5 mg PO Q12H PRN (Reason: anxiety)
escitalopram oxalate 5 mg Tablet
5 mg PO DAILY
cholecalciferol (vitamin D3) [Vitamin D3] 50 mcg (2,000 unit) Capsule
100 mcg PO HS
memantine 14 mg Capsule,Sprinkle,Er 24hr
14 mg PO DAILY
Adults Multivitamin 18 mg iron-400 mcg-25 mcg Tablet
2 tab PO HS
Discharge Orders:
Discharge Patient (As Directed); Ordered 06/10/24
Ordered By: Roberto Vasquez
Discharge Date and Time
Print Language: ROMANIAN
[2024-06-10 15:00] VITALS: BP 106/71
--- NOTE | 2024-06-10 15:29 | PTCARENOTE ---
Pt transported to [facility], report called, iv removed. Pt left via ambulance via stretcher
== END 2024-06-10 15:35 | DRG 177 ==
LOC: 4 WEST ACU 06:13
PROVIDERS: Internal Medicine; ADMITTING PHYSICIAN Hospitalist; ATTENDING PHYSICIAN Hospitalist; EMERGENCY PHYSICIAN Emergency Medicine; FAMILY PHYSICIAN Internal Medicine
DX: J69.0 Pneumonitis due to inhalation of food and vomit (principal); J96.01 Acute respiratory failure with hypoxia; F03.93 Unspecified dementia, unspecified severity, with mood disturbance; F03.94 Unspecified dementia, unspecified severity, with anxiety; F03.92 Unspecified dementia, unspecified severity, with psychotic disturbance; F05 Delirium due to known physiological condition; Z66 Do not resuscitate; F32.A Depression, unspecified; I10 Essential (primary) hypertension; Z11.52 Encounter for screening for COVID-19; R11.10 Vomiting, unspecified
CPT/HCPCS: 71046; 71260; 71275; 74177; 76700; 80048; 80053; 81003; 81015; 82248; 83690; 83880; 84484; 85025; 85379; 87086; 87502; 87811; 92526; 92610; 93005; 96374; 99285; J2358; Q9967

== ENCOUNTER 2024-06-15 23:47 | Emergency (ER) | payer OTHER, SELFPAY ==
[2024-06-15 23:51] VITALS: BP 153/72
[2024-06-15 23:52] VITALS: BP 153/72
[2024-06-16] VITALS: BP 135/72
--- NOTE | 2024-06-16 00:44 | ED.GENMED ---
History of Present Illness
General
Chief Complaint: Fall
Source: patient
Exam Limitations: none
Time Seen by Provider: 06/16/24 00:25
History of Present Illness
History of Present Illness:
78-year-old male with history of dementia presents after a fall at the facility. He was here 1 week ago for pneumonia. He was reported to hit his head on the wall. Not anticoagulated. His daughter is with him who states is at his neurologic
baseline. Patient cannot provide any history
Phy Exam
Physical Exam
Physical Exam:
General: Well-developed and well-appearing male no acute respiratory distress
HEENT: Normocephalic atraumatic no scalp abrasion or hematoma
Heart: Regular rate and rhythm no murmur
Lungs: Clear no wheeze
Abdomen is soft nontender
Musculoskeletal exam: The spine is nontender good range of motion all extremities no deformities
Course
Orders/Labs/Results
Orders:
Orders
06/16/24 00:02
CT Cervical Spine W/o Iv Contr Urgent
Reason For Exam: fall
CT Head W/o Iv Contrast Urgent
Reason For Exam: fall
Vital Signs
Initial and Last Documented VS:
Initial Vital Signs
Temp Pulse Resp BP Pulse Ox
98.2 F 58 18 153/72 98
06/15/24 23:51 06/15/24 23:51 06/15/24 23:51 06/15/24 23:51 06/15/24 23:51
Last Documented Vital Signs
Temp Pulse Resp BP Pulse Ox
98.2 F 58 18 153/72 98
06/15/24 23:51 06/15/24 23:51 06/15/24 23:51 06/15/24 23:52 06/15/24 23:52
MDM/Problems Addressed
Differential Diagnosis Includes:
Fall. Concern for possible head injury. CT head and cervical spine ordered. I personally reviewed these images were negative for acute intracranial hemorrhage or fracture of the cervical spine. Pending official radiology read
Had discussion with daughter. If negative will plan on discharge back to facility
*Critical Care Note
Total Time (30-74mins, 75-104mins- exclusive of procedures): Not Applicable
Update Note
Update Note:
CT of head and cervical spine negative for acute findings. Patient reassured daughter reassured. Daughter comfortable with driving him back to the facility.
ED Attending Note
-
Portions of this chart may have been created with voice recognition software.� Occasional wrong word or��sound alike� substitutions may have occurred due to the inherent limitations of voice recognition software.
Discharge Plan
Departure
Patient Disposition: Home (Routine Discharge)
Date of Disposition: 06/16/24
Time of Disposition: 01:30
Patient with high blood pressure during this ER visit?: No
Discharge Problem:
Fall
Prescriptions:
No Action
acetaminophen 325 mg Tablet
650 mg PO Q6H PRN (Reason: pain)
atorvastatin 20 mg Tablet
20 mg PO HS
cyanocobalamin (vitamin B-12) [Vitamin B-12] 1,000 mcg Tablet
2,000 mcg PO DAILY
amlodipine 5 mg Tablet
5 mg PO DAILY
triamcinolone acetonide 0.1 % Cream
1 applic TOPICAL BID
Rx Instructions:
apply to chest and back topically every morning and at bedtime for rash
lorazepam 0.5 mg Tablet
0.5 mg PO Q12H PRN (Reason: anxiety)
escitalopram oxalate 5 mg Tablet
5 mg PO DAILY
cholecalciferol (vitamin D3) [Vitamin D3] 50 mcg (2,000 unit) Capsule
100 mcg PO HS
memantine 14 mg Capsule,Sprinkle,Er 24hr
14 mg PO DAILY
Adults Multivitamin 18 mg iron-400 mcg-25 mcg Tablet
2 tab PO HS
Referrals:
UNKNOWN - PT DOES,NOT KNOW [Family Provider] -
Activity Restrictions/Additional Instructions:
Return if needed
Interventions
Interventions:
*Risk Screen - Suicide Last Done: 06/15/24 23:54
*General Assessment Last Done: 06/15/24 23:54
*Neglect/Abuse Screening Last Done: 06/15/24 23:54
*ED- Fall Risk Assessment Last Done: 06/15/24 23:54
*ED COVID-19 Vaccine History Last Done: 06/15/24 23:54
ED-Musculoskeletal Assessment Last Done: 06/16/24 00:00
ED- Neurological Assessment Last Done: 06/16/24 00:00
ED-Skin Assessment Last Done: 06/16/24 00:00
Discharge Date and Time
Print Language: UGANDAN
[2024-06-16 01:28] VITALS: BP 153/74
== END 2024-06-16 01:44 ==
LOC: EMR 23:47
PROVIDERS: EMERGENCY PHYSICIAN Emergency Medicine
DX: Z04.3 Encounter for examination and observation following other accident (principal); W19.XXXA Unspecified fall, initial encounter; F03.90 Unspecified dementia, unspecified severity, without behavioral disturbance, psychotic disturbance, mood disturbance, and anxiety
CPT/HCPCS: 99284; 70450; 72125

== ENCOUNTER 2024-09-21 03:43 | Emergency (ER) | payer OTHER, SELFPAY ==
[2024-09-21 03:50] VITALS: BP 153/89
[2024-09-21 04:00] VITALS: BP 133/84
--- NOTE | 2024-09-21 04:06 | ED.GENMED ---
History of Present Illness
General
Chief Complaint: Fall
Source: patient, family, ambulance crew and long-term
Exam Limitations: dementia
Time Seen by Provider: 09/21/24 03:50
Nursing documentation reviewed up to this point in time: agreed with
History of Present Illness
History of Present Illness:
78-year-old male with past medical history of dementia hypertension hyperlipidemia presenting to the emergency department after falling out of his bed which is roughly a foot and a half or so off the ground. They believe that he bumped his head did
not lose consciousness unsure how long he was on the ground considering he has dementia does not recall the event. Could not be more than a few hours ago. Denies any chest pain shortness of breath or any symptoms at this time.
Review of Systems
Review of Systems
Allergies reviewed?: Yes
All Other Systems: ROS reviewed and negative except as documented in HPI and ROS
Phy Exam
Physical Exam
Physical Exam:
GENERAL: Alert , in no apparent distress
EYE: pupils equal and reactive
NECK: Supple, no significant adenopathy.
ENT: o/p clr, mmm.
CARDIAC: Regular rate and rhythm .
LUNGS: Clear breath sounds bilaterally, no acute respiratory distress, no wheezes/rales/rhonchi
ABDOMEN: Soft, without focal tenderness, no r/g, no cvat
NEUROLOGICAL: Alert not oriented, no focal neuro deficits
SKIN: Warm and dry, skin intact.
MUSCULOSKELETAL: No edema, well perfused.
PSYCH: Normal and appropriate interaction.
Course
Orders/Labs/Results
Orders:
Orders
09/21/24 03:52
CT Cervical Spine W/o Iv Contr Urgent
Comment:
Reason For Exam: fall hit head
CT Head W/o Iv Contrast Urgent
Comment:
Reason For Exam: fal hit head
09/21/24 04:35
CBC/With Diff [Complete Blood Count/With Diff] Urgent
CMP [Comprehensive Metabolic Panel] Urgent
Creatine Phosphokinase Urgent
Urinalysis Reflex To Culture Urgent
Date Specimen was Collected: 09/21/24
Time Specimen was Collected: 04:09
Abnormal Lab Results
09/21/24
04:35
RBC 4.49 L 10^6/uL
(4.70-6.10)
MCH 31.6 H pg
(27.0-31.0)
MPV 10.5 H fL
(7.4-10.4)
Absolute Monos (auto) 0.7 H 10^3/uL
(0.1-0.6)
Monocytes % 10.7 H %
(1.7-9.3)
Chloride 108 H mmol/L
(98-107)
09/21/24 04:35
09/21/24 04:35
Vital Signs
Initial and Last Documented VS:
Initial Vital Signs
Temp Pulse Ox
97.7 F 93
09/21/24 03:45 09/21/24 03:45
Last Documented Vital Signs
Temp Pulse Resp BP Pulse Ox
97.7 F 57 17 133/84 93
09/21/24 03:45 09/21/24 03:50 09/21/24 03:50 09/21/24 04:00 09/21/24 03:50
MDM/Problems Addressed
MDM/Problems Addressed:
78-year-old male presenting to the emergency department from nursing facility after falling out of bed onto a pad on the ground roughly a foot and a half from the ground. He is not able to supply any history concerning has advanced dementia. Plan
for head CT as well as labs. Daughter also concerned of potential UTI. Urinalysis sent for further assessment. Urinalysis without evidence of UTI labs unremarkable creatine kinase normal head CT and neck CT without emergent findings stable for
discharge return precautions given.
*Critical Care Note
Total Time (30-74mins, 75-104mins- exclusive of procedures): Not Applicable
ED Attending Note
-
Portions of this chart may have been created with voice recognition software.� Occasional wrong word or��sound alike� substitutions may have occurred due to the inherent limitations of voice recognition software.
Discharge Plan
Departure
Patient Disposition: Home (Routine Discharge)
Date of Disposition: 09/21/24
Time of Disposition: 05:37
Patient with high blood pressure during this ER visit?: No
Condition: Good
Covid-19: Not Applicable
Discharge Problem:
Fall
Instructions: Preventing falls in adults
Prescriptions:
No Action
acetaminophen 325 mg Tablet
650 mg PO Q6H PRN (Reason: pain)
atorvastatin 20 mg Tablet
20 mg PO HS
cyanocobalamin (vitamin B-12) [Vitamin B-12] 1,000 mcg Tablet
2,000 mcg PO DAILY
amlodipine 5 mg Tablet
5 mg PO DAILY
triamcinolone acetonide 0.1 % Cream
1 applic TOPICAL BID
Rx Instructions:
apply to chest and back topically every morning and at bedtime for rash
lorazepam 0.5 mg Tablet
0.5 mg PO Q12H PRN (Reason: anxiety)
escitalopram oxalate 5 mg Tablet
5 mg PO DAILY
cholecalciferol (vitamin D3) [Vitamin D3] 50 mcg (2,000 unit) Capsule
100 mcg PO HS
memantine 14 mg Capsule,Sprinkle,Er 24hr
14 mg PO DAILY
Adults Multivitamin 18 mg iron-400 mcg-25 mcg Tablet
2 tab PO HS
Referrals:
UNKNOWN - PT DOES,NOT KNOW [Family Provider]
Activity Restrictions/Additional Instructions:
González came to the ER after a fall. Here he had a reassuring assessment. Return for any worsening, new or concerning symptoms.
Interventions
Interventions:
*Risk Screen - Suicide Last Done: 09/21/24 03:45
*General Assessment Last Done: 09/21/24 03:45
*Neglect/Abuse Screening Last Done: 09/21/24 03:45
*ED- Fall Risk Assessment Last Done: 09/21/24 03:45
*ED COVID-19 Vaccine History Last Done: 09/21/24 03:45
ED-Musculoskeletal Assessment Last Done: 09/21/24 03:45
ED- Neurological Assessment Last Done: 09/21/24 03:45
ED-Skin Assessment Last Done: 09/21/24 03:45
Discharge Date and Time
Print Language: TAMAZIGHT
[2024-09-21 04:44] LABS: % Basophils 0.8 % (0-2); % Eosinophils 5.8 % (0-6); % Immature Granulocytes 0.5 % (0-0.5); % Lymphocytes 22.6 % (20.5-51.1); % Monocytes 10.7 % (1.7-9.3); % Neutrophils 59.6 % (42.2-75.2); Absolute Basophils 0.1 10^3/uL (0-0.2); Absolute Eosinophils 0.4 10^3/uL (0-0.7); Absolute Lymphocytes 1.5 10^3/uL (1.2-3.4); Absolute Monocytes 0.7 10^3/uL (0.1-0.6); Absolute Neutrophils 3.9 10^3/uL (1.4-6.5); Hematocrit 42.2 % (39.0-52.0); Hemoglobin 14.2 g/dL (13.0-18.0); Mean Corp Hgb Conc. 33.6 g/dL (33.0-37.0); Mean Corpuscular Hgb 31.6 pg (27.0-31.0); Mean Platelet Volume 10.5 fL (7.4-10.4); Nucleated Red Blood Cells % 0 % (-); Platelet Count 231 10^3/uL (130-400); Red Blood Cell Count 4.49 10^6/uL (4.70-6.10); Red Cell Dist. Width 13.4 % (11.5-14.5); White Blood Cell Count 6.5 10^3/uL (4.8-10.8)
[2024-09-21 05:00] VITALS: BP 143/87
[2024-09-21 05:07] LABS: ALT (SGPT) 46 U/L (0-50); AST (SGOT) 27 U/L (17-59); Albumin 3.7 g/dl (3.5-5.0); Alkaline Phosphatase 73 U/L (38-126); Blood Urea Nitrogen 15 mg/dl (9-20); Calcium 9.3 mg/dl (8.4-10.2); Carbon Dioxide 29 mmol/L (22-30); Chloride 108 mmol/L (98-107); Creatine Phosphokinase 58 U/L (55-170); Glucose 99 mg/dl (70-99); Sodium 144 mmol/L (135-145); Total Bilirubin 0.5 mg/dl (0.2-1.3); Total Protein 6.3 g/dl (6.3-8.2); eGFR > 60.00
[2024-09-21 05:17] LABS: Urine Albumin Negative (Neg - Trace); Urine Bilirubin Negative (Negative); Urine Character Clear (Clear); Urine Color Yellow; Urine Glucose Negative (Negative); Urine Ketone Negative (Negative); Urine Leukocyte Negative (Negative); Urine Nitrite Negative (Negative); Urine Occult Blood Negative (Negative); Urine Urobilinogen Negative (Neg - 1+)
[2024-09-21 06:00] VITALS: BP 148/86
== END 2024-09-21 06:52 | disposition home or self-care (01) ==
LOC: EMR 03:43
PROVIDERS: Physician Assistant; EMERGENCY PHYSICIAN Student in an Organized Health Care Education/Training Program
DX: S09.90XA Unspecified injury of head, initial encounter (principal); W06.XXXA Fall from bed, initial encounter; I10 Essential (primary) hypertension; F03.90 Unspecified dementia, unspecified severity, without behavioral disturbance, psychotic disturbance, mood disturbance, and anxiety; E78.5 Hyperlipidemia, unspecified
CPT/HCPCS: 99285; 70450; 72125; 80053; 81003; 82550; 85025

== ENCOUNTER 2024-10-01 16:43 | Inpatient (IN) | payer OTHER, SELFPAY ==
[2024-10-01] VITALS (15 sets, daily range): BP systolic 110–159; BP diastolic 56–81; BMI 28.6
--- NOTE | 2024-10-01 14:24 | ED.GENMED ---
History of Present Illness
General
Chief Complaint: Cough
Source: ambulance crew
Exam Limitations: dementia
Time Seen by Provider: 10/01/24 14:17
History of Present Illness
History of Present Illness:
78yoM with a history of dementia, hypertension, hyperlipidemia presenting via EMS for evaluation of cough. Patient arrives from [facility]. History is provided by EMS on arrival. Patient has been having a cough for the
past 2 days. He has been the increasingly agitated and more confused today which prompted EMS call. Patient unable to provide any additional history due to his dementia although he does deny any pain.
Phy Exam
General Physical Exam
General Presentation: mild distress
General Skin: warm and dry
General Habitus: normal and elderly
General Mental: alert
ENT Exam
ENT Exam: normocephalic
Eye Exam
Eye Exam: other (Conjunctiva injected bilaterally with yellow discharge)
Cardiovascular Exam
Cardiovascular Exam: regular rate/rhythm
Pulmonary Exam
Pulmonary Exam: no stridor, no wheezing and other (Rhonchi and crackles noted at bases. Mild tachypnea.)
Gastrointestinal Exam
Gastrointestinal Exam: non tender, soft and non distended
Skin Exam
Skin Exam: normal color and warm/dry
Psychiatric Exam
Psychiatric Exam: normal mood/affect
Sepsis
Sepsis Screening
Sepsis Assessment: Sepsis
Sepsis Screen
Sepsis Screen: Sepsis
Date: 10/01/24
Time: 20:13
Course
Orders/Labs/Results
Orders:
Orders
10/01/24 Breakfast
Clear Liquid
At Your Request: Non-Participating
10/01/24 14:15
Electrocardiogram (*1) Urgent
Reason for Study: Other
Other Reason for Exam: Possible Sepsis
Cardiac Monitoring- Treatment ONCE
EKG- Treatment ONCE
IV Insert/Care/Rem.- Treatment PRN
Straight cath- Treatment ONCE
O2 Therapy [RESP] Urgent
Titrate/Wean O2 to maintain O2 sat greater than (%): 93
Special Instructions: TO MAINTAIN CONTINUOUS O2 SATS > OR = 93%
Pulse Ox/cont/shift [RESP] Urgent
Quantity: 1
Special Instructions: CONTINUOUS
10/01/24 14:23
0.9% Sodium Chloride 1000 ml [Nss] 1,000 ml IV BOLUS
Acetaminophen [Tylenol/Feverall] 650 mg RECTAL NOW STA
10/01/24 14:48
COVID-19 Antigen Urgent
Source: Nasal Swab
Complete Blood Count/With Diff Urgent
Comprehensive Metabolic Panel Urgent
Lactic Acid Q4H
Comment: ON ICE, CANCEL 2ND ORDER IF FIRST LACTIC ACID LEVEL <2
Urinalysis Reflex To Culture Urgent
Date Specimen was Collected: 10/01/24
Time Specimen was Collected: 14:40
Urine Microscopic Reflex Cult Urgent
Blood Culture Q20M
ALEJANDRO Source: Blood/Venous
Specimen Description:
Comment: Urgent from separate sites. If patient screens positive for possible sepsis
Influenza A+B Rapid Molecular Urgent
ALEJANDRO Source: Nasal Swab
Specimen Description:
10/01/24 15:03
CR Chest Portable - 1 View Urgent
Comment:
Reason For Exam: SOB, cough
Reason Study Needs to be Portable: Patient Unstable
10/01/24 15:05
Blood Culture Q20M
ALEJANDRO Source: Blood/Venous
Specimen Description:
Comment: Urgent from separate sites. If patient screens positive for possible sepsis
10/01/24 16:04
CefTRIAXone [Rocephin] 2,000 mg IV NOW STA
10/01/24 16:[address] Non Medication Order As Directed
Physician Order: NOTIFY MD WHEN MED REC DONE
10/01/24 16:28
Admit/Transfer Patient As Directed
Co-Sign Provider:
Level of Care: Inpatient admission
Assign to:: Telemetry
Physician / Group: adry chi
Diagnosis: COVID 19 infection, cough, Pneumonia
Reason for Telemetry: Arrhythmia
Date to Stop Telemetry: 10/04/24
Time to Stop Telemetry: 11:00
Reason for Hospitalization: COVID 19 infection, cough, Pneumonia
Expected length of stay greater than two midnights?: Yes
ELOS- Estimated Length of Stay in days: 3
I certify the patient meets the requirements for IP care: Yes
10/01/24 16:29
PRN Pain Medication Management As Directed
May give lesser potent ordered pain med per pt: Yes
preference::
Protocol:: Medication orders for pain may be administered in a
manner that supports deferring to patient preference
when the pt is:
- Requesting an ordered lesser potent pain medication.
Least to most potent pain medications are defined
as: acetaminophen < NSAID < tramadol < opioids
(morphine, oxycodone, hydromorphone).
- Requesting a lesser dose of the same medication IF
ORDERED.
- Requesting a less intrusive route of administration
if both routes are prescribed by the provider (PO <
IV).
10/01/24 16:31
Code Status As Directed
Resuscitation Status: Do not resuscitate
Reached after discussion with pt or family/Healthcare POA: Yes
DNR Bracelet Application ONCE
10/01/24 16:40
Guaifenesin [Mucinex] 600 mg PO Q12
10/01/24 16:45
0.9% Sodium Chloride 1000 ml [Nss] 1,000 ml IV 60 mls/hr
10/01/24 18:00
Ciprofloxacin HCl [Ciloxan 0.3% Ophthalmic Solution] See Dose Instructions OPHTH Q6
Dexamethasone Sod Phosphate [Decadron] 6 mg IV Q24H
Doxycycline Hyclate [Vibramycin] 100 mg 0.9% Sodium Chloride 250 ml [Nss] 250 ml IV Q12H
10/01/24 18:10
Bisacodyl [Dulcolax] 10 mg RECTAL [id number] PRN
Docusate W/Senna [Senokot-S] 1 tablet PO BIDPRN PRN
Enoxaparin Sodium [Lovenox] 40 mg SC QPM
Lorazepam [Ativan] 0.5 mg PO [id number] PRN anxiety
Polyethylene Glycol Powder [Miralax] 17 grams PO DAILYPRN PRN
10/01/24 18:10
Activity As Directed
Activity Level: As Tolerated
Intake/ Output As Directed
Frequency: Per unit guidelines
Neurological Checks As Directed
Frequency: Per unit guidelines
Pneumatic Compression Sleeves As Directed
Type: Knee high
Vital Signs As Directed
Frequency: Per unit guidelines
Weight As Directed
Frequency: Daily
Pulse Ox/spot Check [RESP] Routine
Quantity: 1
Speech Therapy Eval & Treat Routine
DX Deep Vein Thrombosis Video Routine
10/01/24 20:00
Acetaminophen [Tylenol/Feverall] 650 mg RECTAL Q4HPRN PRN
Acetaminophen [Tylenol] 650 mg PO Q6HPRN PRN
10/01/24 20:03
Procalcitonin Urgent
If negative, will antibiotics be d/c'd or not started: Yes
Does the patient have renal or hepatic impairment?: No
Any recent (w/in 48 hrs) physiologic stress (CPR, rhabdo): No
10/01/24 22:00
Atorvastatin [Lipitor] 20 mg PO HS
Cholecalciferol (Vitamin D3) [VITAMIN D3 (cholecalciferol)] 100 mcg PO HS
10/02/24 06:00
Basic Metabolic Panel IN AM
Complete Blood Count/With Diff IN AM
10/02/24 08:00
Cyanocobalamin [Vitamin B-12] 2,000 mcg PO DAILY
Escitalopram Oxalate [Lexapro] 5 mg PO DAILY
Memantine HCl [Namenda] 5 mg PO BID
10/02/24 16:00
CefTRIAXone [Rocephin] 1,000 mg IV Q24H
Sterile Water [Sterile Water For Injection] 10 ml IV Q24H
10/04/24 11:00
DC Protocol for Telemetry ONCE
Abnormal Lab Results
10/01/24
14:48
WBC 12.3 H 10^3/uL
(4.8-10.8)
RBC 4.51 L 10^6/uL
(4.70-6.10)
MCH 32.2 H pg
(27.0-31.0)
Absolute Neuts (auto) 9.7 H 10^3/uL
(1.4-6.5)
Absolute Lymphs (auto) 1.1 L 10^3/uL
(1.2-3.4)
Absolute Monos (auto) 1.4 H 10^3/uL
(0.1-0.6)
Neutrophils % 79.1 H %
(42.2-75.2)
Lymphocytes % 8.8 L %
(20.5-51.1)
Monocytes % 11.1 H %
(1.7-9.3)
Chloride 108 H mmol/L
(98-107)
Glucose 120 H mg/dl
(70-99)
Urine Ketones 1+ A
(Negative)
Urine Albumin (Reflex) 1+ A
(Neg - Trace)
SARS-CoV-2 Antigen Positive A
(Negative)
10/01/24 14:48
10/01/24 14:48
Vital Signs
Initial and Last Documented VS:
Initial Vital Signs
Temp Pulse Resp BP Pulse Ox
101.7 F H 76 15 126/69 88
10/01/24 13:57 10/01/24 13:57 10/01/24 13:57 10/01/24 13:57 10/01/24 13:57
Last Documented Vital Signs
Temp Pulse Resp BP Pulse Ox
98.9 F 66 20 135/70 95
10/01/24 18:30 10/01/24 18:30 10/01/24 18:30 10/01/24 18:30 10/01/24 18:30
MDM/Problems Addressed
Differential Diagnosis Includes:
78yoM here with cough and confusion. Hx of dementia. Temp 101.7 on arrival and oxygen saturation 88%. He is on 2L NC on initial exam. Bilateral conjunctival injection and drainage noted. Rhonchi and ralse on lung exam. differential diagnosis
includes but is not limited to: Viral illness, pneumonia, sepsis
Initial ED plan: Check septic workup including lactate, blood cultures, COVID/flu swab, EKG, and chest x-ray. Tylenol and IV fluid bolus.
*Pulse Oximetry
SaO2: 94
Nasal Cannula flow liters per minute: 2
Oxygen Mode of Delivery: Room air
Patient hypoxic: yes (88%)
*EKG
Interpreted by ED Provider?: Yes
EKG Intrepretation Date: 10/01/24
Heart Rate: 71
Rate: normal
Rhythm: sinus
[place]: left axis deviation
Interval: normal interval
QRS Pattern: normal QRS
Ischemia: no ischemia
*Critical Care Note
Total Time (30-74mins, 75-104mins- exclusive of procedures): Not Applicable
Update Note
Update Note:
Patient is COVID-positive. White count 12.3, lactate normal. Chest x-ray reveals left basilar pneumonia. IV Rocephin ordered and patient admitted for further management.
ED Attending Note
-
Portions of this chart may have been created with voice recognition software.� Occasional wrong word or��sound alike� substitutions may have occurred due to the inherent limitations of voice recognition software.
Discharge Plan
Departure
Patient Disposition: Admit
Date of Disposition: 10/01/24
Time of Disposition: 15:27
Presentation/result/management discussed w/ accepting MD/DO: Hospitalist
Discharge Problem:
COVID-19, Acute hypoxic respiratory failure
Interventions
Interventions:
*Risk Screen - Suicide Last Done: 10/01/24 13:57
*General Assessment Last Done: 10/01/24 13:57
*Neglect/Abuse Screening Last Done: 10/01/24 13:57
*ED- Fall Risk Assessment Last Done: 10/01/24 14:17
*ED COVID-19 Vaccine History Last Done: 10/01/24 14:05
*Nursing Disposition Last Done: 10/01/24 17:55
ED- Pulmonary Assessment Last Done: 10/01/24 14:30
Discharge Date and Time
Discharge Date/Time: 10/01/24 17:55
[2024-10-01] MEDS: TYLENOL/FEVERALL 650 MG RECTAL (14:34)
[2024-10-01] MEDS: NSS 1000 IV ×2 (14:35→19:16)
[2024-10-01 14:56] LABS: % Basophils 0.3 % (0-2); % Eosinophils 0.4 % (0-6); % Immature Granulocytes 0.3 % (0-0.5); % Lymphocytes 8.8 % (20.5-51.1); % Monocytes 11.1 % (1.7-9.3); % Neutrophils 79.1 % (42.2-75.2); Absolute Eosinophils 0.1 10^3/uL (0-0.7); Absolute Lymphocytes 1.1 10^3/uL (1.2-3.4); Absolute Monocytes 1.4 10^3/uL (0.1-0.6); Absolute Neutrophils 9.7 10^3/uL (1.4-6.5); Hematocrit 41.9 % (39.0-52.0); Hemoglobin 14.5 g/dL (13.0-18.0); Mean Corp Hgb Conc. 34.6 g/dL (33.0-37.0); Mean Corpuscular Hgb 32.2 pg (27.0-31.0); Mean Corpuscular Volume 92.9 fL (80.0-94.0); Mean Platelet Volume 10.4 fL (7.4-10.4); Nucleated Red Blood Cells % 0 % (-); Platelet Count 236 10^3/uL (130-400); Red Blood Cell Count 4.51 10^6/uL (4.70-6.10); Red Cell Dist. Width 13.2 % (11.5-14.5); White Blood Cell Count 12.3 10^3/uL (4.8-10.8)
[2024-10-01 15:02] LABS: Urine Albumin 1+ (Neg - Trace); Urine Bilirubin Negative (Negative); Urine Color Yellow; Urine Glucose Negative (Negative); Urine Ketone 1+ (Negative); Urine Leukocyte Negative (Negative); Urine Nitrite Negative (Negative); Urine Occult Blood Negative (Negative); Urine Specific Gravity 1.015 (<1.030); Urine Urobilinogen Negative (Neg - 1+)
[2024-10-01 15:04] LABS: Urine Character Clear (Clear)
[2024-10-01 15:14] LABS: ALT (SGPT) 30 U/L (0-50); AST (SGOT) 25 U/L (17-59); Alkaline Phosphatase 80 U/L (38-126); Blood Urea Nitrogen 16 mg/dl (9-20); Carbon Dioxide 29 mmol/L (22-30); Chloride 108 mmol/L (98-107); Glucose 120 mg/dl (70-99); Potassium 3.8 mmol/L (3.5-5.1); Sodium 143 mmol/L (135-145); Total Bilirubin 0.6 mg/dl (0.2-1.3); Total Protein 6.8 g/dl (6.3-8.2); eGFR > 60.00
[2024-10-01 15:16] LABS: COVID-19 Antigen Positive (Negative)
[2024-10-01 15:24] LABS: Urine Amorphous Seen; Urine Squamous Cell 0-2 /LPF (Few)
[2024-10-01 15:26] LABS: Lactic Acid 0.9 mmol/L (0.7-2.0)
[2024-10-01 15:27] LABS: Urine Red Blood Cell 0-2 /HPF (0-2); Urine White Cell 0-2 /HPF (0-5)
[2024-10-01] MEDS: ROCEPHIN 2000 MG IV (16:19)
--- NOTE | 2024-10-01 16:39 | HPS.HSE ---
Family Physician
-
Family Physician: Evan Soto
Chief Complaint
-
cough,confusion
History of Present Illness
78-year-old male with past medical history of dementia, hypertension, anxiety/depression, hyperlipidemia [facility] with ongoing cough and confusion. [facility] at [facility] has noticed patient been
coughing from past 2 days and also has been increasingly agitated and more confused. Patient's son is visiting and is noted similar changes. Patient also has left eye redness and discharge. Due to dementia patient has been unable to provide any
additional history. In the ED patient was positive for COVID and chest x-ray is consistent with pneumonia. Denies chest pain.
Medical History
Past Medical History
Past Medical History: Reports Dementia, HTN, Hypercholesterolemia and Psychiatric (Depression, anxiety)
Past Surgical History: Reports Other
Social History
Unable to obtain full social history at this time due to: Dementia
Family History
Family History: Unable to Obtain
Allergies / Home Medications
Allergies reflects when Allergies were last updated in [facility].
Home Medications with original date entered in [facility]
Allergy/Medication List:
Allergies
Allergy/AdvReac Type Severity Reaction Status Date / Time
No Known Allergies Allergy Verified 10/01/24 14:14
Home Medications
acetaminophen 325 mg tablet 650 mg PO Q6H PRN pain 05/16/24
amlodipine 5 mg tablet 5 mg PO DAILY Blood Pressure 05/16/24
atorvastatin 20 mg tablet 20 mg PO HS High Cholesterol 05/16/24
cyanocobalamin (vitamin B-12) 1,000 mcg tablet (Vitamin B-12) 2,000 mcg PO DAILY Supplement 05/16/24
escitalopram oxalate 5 mg tablet 5 mg PO DAILY Mental Health/Anxiety 05/16/24
lorazepam 0.5 mg tablet 0.5 mg PO Q12H PRN anxiety 05/16/24
memantine 14 mg capsule sprinkle,extended release 24hr 14 mg PO DAILY Mental Health/Anxiety 05/16/24
triamcinolone acetonide 0.1 % topical cream 1 applic topical BID rash 05/16/24
cholecalciferol (vitamin D3) 50 mcg (2,000 unit) chewable tablet 100 mcg PO HS 10/01/24
nbtxfbgetybi-rpe-nfrsr acid-vit K-lycop 400 mcg-20 mcg-370 mcg tablet (Men's 50 Plus Multivitamin) 2 tab PO HS 10/01/24
zinc oxide-cod liver oil 40 % topical paste (Desitin) 1 applic topical [id number] PRN apply to buttocks for skin redness 10/01/24
Medications on admission are unable to be verified or confirmed at this time.
Review of Systems
-
Unable to obtain full review of systems at this time due to: Dementia
History Source: Patient and Family
Physical Exam
Vital Signs
Vital Signs
Temp Pulse Resp BP Pulse Ox
101.7 F H 73 22 137/76 94
10/01/24 13:57 10/01/24 16:15 10/01/24 16:15 10/01/24 16:15 10/01/24 16:15
Physical Exam
General: No Apparent Distress and Other (Confused)
HEENT: NormoCephalic, Anicteric and Moist mucous membranes
Respiratory: Clear and Rhonchi; No Wheezes
Cardiac: S1/S2 and Regular Rhythm
Breast: Deferred by me
GI: Soft, Non Tender, Non Distended and Normal Bowel Sounds
Rectal: Deferred by Provider
Genito-urinary: No Andrews
Musculoskeletal: No Edema
Neuro: Awake; No Alert or Oriented
Psych: Calm and Apparent Dementia
Laboratory Results
-
10/01/24 14:48
10/01/24 14:48
Laboratory Results
Lactic Acid 0.9 mmol/L (0.7-2.0) 10/01/24 14:48
Total Bilirubin 0.6 mg/dl (0.2-1.3) 10/01/24 14:48
AST 25 U/L (17-59) 10/01/24 14:48
ALT 30 U/L (0-50) 10/01/24 14:48
Alkaline Phosphatase 80 U/L (38-126) 10/01/24 14:48
Data Reviewed
-
Diagnostic Radiology: Report Reviewed by me and Discussed with Family
Lab Data: Labs Reviewed by me and Discussed with Family
Impression/Plan
-
Acute hypoxic respiratory insufficiency likely secondary to COVID-19 with possibility of superimposed bacterial pneumonia
Sepsis (leukocytosis, fever) likely secondary to above, follow fever curve
Continue with empiric antibiotics
Check cultures
Regarding COVID-19, do not think any COVID therapy will be beneficial as timing is unknown. Given need for oxygen, will start Decadron daily
Currently on 2 L, wean oxygen as tolerated
Monitor mental status closely, does have underlying dementia
Speech evaluation, start clears for now. At [facility] he is on regular diet
Check Pro-Poli,check Legionella, strep
Suspect TME with underlying dementia likely secondary to sepsis
Monitor mental status
Suspect conjunctivitis
Ciprofloxacin eyedrops
Monitor
Hypertension
Hold amlodipine at this time
Monitor
Hyperlipidemia
Continue statin
History of depression/anxiety
Continue citalopram, Ativan as needed
Senile dementia
Monitor for hospital-acquired delirium
Continue memantine
DVT prophylaxis
Lovenox
DNR
I spent a total of 76 minutes with the patient or on the floor. More than 50% of this time involved counseling and coordination of care.
[2024-10-01] MEDS: CILOXAN 0.3% OPHTHALMIC SOLUTION 2 DROP OPHTH (19:09)
[2024-10-01] MEDS: VIBRAMYCIN 260 MG IV (19:10)
[2024-10-01] MEDS: LOVENOX 40 MG SC (19:15)
[2024-10-01] MEDS: MUCINEX 600 MG PO (19:15)
[2024-10-01] MEDS: DECADRON 6 MG IV (19:16)
[2024-10-01 20:44] LABS: Procalcitonin < 0.05 ng/ml (0.0-0.25)
[2024-10-01] MEDS: VITAMIN D3 (cholecalciferol) PO (21:01)
[2024-10-01] MEDS: CILOXAN 0.3% OPHTHALMIC SOLUTION 1 DROP OPHTH (23:52)
[2024-10-02] VITALS (7 sets, daily range): BP systolic 127–148; BP diastolic 65–86; PULSE 65; O2SAT 95; BMI 28.6
[2024-10-02] MEDS: CILOXAN 0.3% OPHTHALMIC SOLUTION 1 DROP OPHTH ×3 (05:19→17:40)
[2024-10-02] MEDS: VIBRAMYCIN 260 MG IV ×2 (05:20→17:40)
[2024-10-02 07:10] LABS: % Basophils 0.2 % (0-2); % Immature Granulocytes 0.5 % (0-0.5); % Monocytes 3.2 % (1.7-9.3); % Neutrophils 89.1 % (42.2-75.2); Absolute Immature Granulocytes 0.1 10^3/uL (0-0.05); Absolute Lymphocytes 0.7 10^3/uL (1.2-3.4); Absolute Monocytes 0.3 10^3/uL (0.1-0.6); Absolute Neutrophils 9.3 10^3/uL (1.4-6.5); Hematocrit 41.2 % (39.0-52.0); Hemoglobin 14.1 g/dL (13.0-18.0); Mean Corp Hgb Conc. 34.2 g/dL (33.0-37.0); Mean Corpuscular Hgb 31.5 pg (27.0-31.0); Mean Corpuscular Volume 92.2 fL (80.0-94.0); Mean Platelet Volume 11.2 fL (7.4-10.4); Nucleated Red Blood Cells % 0 % (-); Platelet Count 215 10^3/uL (130-400); Red Blood Cell Count 4.47 10^6/uL (4.70-6.10); Red Cell Dist. Width 12.9 % (11.5-14.5); White Blood Cell Count 10.4 10^3/uL (4.8-10.8)
[2024-10-02 08:03] LABS: Blood Urea Nitrogen 14 mg/dl (9-20); Calcium 8.7 mg/dl (8.4-10.2); Carbon Dioxide 24 mmol/L (22-30); Chloride 110 mmol/L (98-107); Estimated Creatinine Clearance 96 ml/min; Glucose 131 mg/dl (70-99); Potassium 3.9 mmol/L (3.5-5.1); Sodium 141 mmol/L (135-145); eGFR > 60.00
--- NOTE | 2024-10-02 09:46 | PTOTSP ---
Speech Therapy Evaluation:
Pt with acute on chronic risk factors of dysphagia (hx Dementia, TME). Oral phase mildly impaired, likely related to current mentation. No overt s/sx of aspiration across PO trials, however risk of aspiration and related pulmonary complications
increased given dependence for feeding/oral care and compromised respiratory system with current covid/pna. Pt currently on room air, WBC WNL, and procalcitonin WNL.
Recommend:
1. Initiate cautious IDDSI 6 (soft and bite sized solids) and thin liquids
2. Medications crushed in puree
3. Close supervision and assistance with PO intake
4. D/c oral diet if concerned for aspiration or worsening in respiratory status/chest imaging
5. [employer] to follow to monitor tolerance of diet and determine if pt would benefit from instrumental assessment, however pt mentation not currently supportive of this
[2024-10-02] MEDS: NAMENDA 5 MG PO ×2 (09:47→19:54)
[2024-10-02] MEDS: LEXAPRO 5 MG PO (09:47)
[2024-10-02] MEDS: MUCINEX 600 MG PO ×2 (09:47→19:50)
[2024-10-02] MEDS: VITAMIN B-12 2000 MCG PO (09:48)
--- NOTE | 2024-10-02 10:28 | W.PN.HOSP.TC ---
Addendum entered and electronically signed by Mony Hernandez MD 10/03/24 11:18:
correction-Stopped steroids with dementia
Not ' Start Steroids with Dementia'
Original Note:
Today's Communication/Plan
-
Start Paxlovid
Hold statin
PT eval
Check HBA1C
Stop IVF
Possible discharge tomorrow if stable
Assessment / Plan
Assessment / Plan
78-year-old male with cough and confusion. Patient lives at [facility]. Son visited along with this mom on Tuesday when he was having some symptoms such as conjunctival congestion, poor p.o. intake. He feels that that is when the symptoms started.
Pneumonia- Left basilar probable pneumonia.
Mild conjunctival congestion
Patient is pleasant follows directions but keeps repeating same words for questions-son states this is usually his pattern
Cardiovascular system S1-S2 appreciated
Chest clear to auscultation
Abdomen soft and nontender
No pedal edema
No facial droop good strength bilateral upper extremities and lower extremities
# Acute hypoxic respiratory insufficiency
Likely secondary to COVID-19
Continue doxycycline for anti-inflammatory properties for now
Likely started COVID-19 infection on Tuesday-started Paxlovid. Hold statin
Start steroids with dementia
Patient off of oxygen
# TME likely secondary to above
Underlying dementia
Pleasant keeps repeating the same words
# Conjunctivitis -continue ciprofloxacin eyedrops
# Hypertension-hold amlodipine
# Hyperlipidemia-hold statin
# History of depression and anxiety-continue Celexa, Ativan outpatient doses
# Senile dementia-continue memantine
# DVT prophylaxis-Lovenox
# DNR
Discussed with nursing
Discussed with patient's son at bedside
Part of this note was created using voice recognition system. Occasional wrong word or��sound alike� substitutions may have inadvertently occurred due to the inherent limitations of voice recognition software. If noted kindly bring it to my
attention for correction.
Anticipated Discharge: Within 24 hours
Subjective/Interval History
-
Date of Service: October 02, 2024
Objective Data
-
Labs:
Laboratory Results
10/02/24
06:23
WBC 10.4
Hgb 14.1
Hct 41.2
Plt Count 215
Sodium 141
Potassium 3.9
Chloride 110 H
Carbon Dioxide 24
BUN 14
Creatinine 0.5 L
Glucose 131 H
Calcium 8.7
Vital Signs:
Vital Signs
Temp Pulse Resp BP Pulse Ox
96.9 F L 61 20 134/70 94
10/02/24 07:00 10/02/24 07:00 10/02/24 07:00 10/02/24 07:00 10/02/24 07:00
[2024-10-02] MEDS: PAXLOVID 2X150 MG-100 MG DOSE PACK 1 DOSE PO ×2 (11:48→19:51)
--- NOTE | 2024-10-02 12:46 | CM ---
CM following re: discharge [planning.
Reviewed pt's chart, spoke to [facility] care unit client support representative Tere [phone].
Pt is a 78 year old male, admitted with primary dx of Acute hypoxic respiratory insufficiency, likely secondary to COVID-19. PMH includes: dementia, hypertension, anxiety/depression, hyperlipidemia.
Pt is not a great historian, information obtained from [facility] MARY Carranza. per RN, pt has been living at [facility] for a few years, has a spouse and she lives in a
community, has supportive daughter who has POA and supportive son Cheo who is in the area and helps his mother. Daughter is on vacation. Per MARY Carranza pt ambulates with a walker during therapy session, mostly uses a wheelchair. per Tere, pt is
current with [facility] and [facility]. Yenifer Carranza pt will be accepted back when medically stable.
[facility] phone number for nursing report: [phone]
Discharge instructions fax: [phone]
[facility] fax: [phone]
[facility] fax: [phone]
PCP: Evan Soto
Pharmacy: [facility] pharmacy
D/C plan: return back to [facility] with resumptions of [facility], [facility] and staff support,
--- NOTE | 2024-10-02 12:56 | PTCARENOTE ---
Patient is pleasantly confused at present, only oriented to himself. Does not recognize son sitting next to him at bedside. Patient follows verbal commands. Patient occasionally speaks one or two word answers. Patient is able to turn himself in bed,
but needs cues for ADL's and eating meals. Call ceballos in reach, bed alarm maintained.
--- NOTE | 2024-10-02 13:04 | PTCARENOTE ---
Patient's left eye with drainage. Patient's eye stuck shut due to dried yellow crusty from eye drainage. Patient rubbing eye causing increased redness. Eyelid cleaned with saline and a tiny dab of Vaseline applied to outer corner of eye lid.
[2024-10-02] MEDS: LOVENOX 40 MG SC (17:40)
[2024-10-02] MEDS: VITAMIN D3 (cholecalciferol) 100 MCG PO (21:54)
[2024-10-03] MEDS: CILOXAN 0.3% OPHTHALMIC SOLUTION 1 DROP OPHTH ×3 (01:16→11:10)
[2024-10-03 03:07] VITALS: BP 154/82
[2024-10-03] MEDS: VIBRAMYCIN 260 MG IV (05:25)
[2024-10-03 05:44] VITALS: BMI 28.8
[2024-10-03 07:00] VITALS: BP 127/73
[2024-10-03] MEDS: NAMENDA 5 MG PO (07:44)
[2024-10-03] MEDS: LEXAPRO 5 MG PO (07:44)
[2024-10-03] MEDS: MUCINEX 600 MG PO (07:44)
[2024-10-03] MEDS: PAXLOVID 2X150 MG-100 MG DOSE PACK 1 DOSE PO (07:44)
[2024-10-03] MEDS: VITAMIN B-12 2000 MCG PO (07:44)
--- NOTE | 2024-10-03 11:15 | W.PN.HOSP.TC ---
Today's Communication/Plan
-
Discharge
Assessment / Plan
Assessment / Plan
78-year-old male with cough and confusion. Patient lives at [facility]. Son visited along with this mom on Tuesday when he was having some symptoms such as conjunctival congestion, poor p.o. intake. He feels that that is when the symptoms started.
Pneumonia- Left basilar probable pneumonia.
Mild conjunctival congestion
Patient is pleasant follows directions but keeps repeating same words for questions-son states this is usually his pattern
Cardiovascular system S1-S2 appreciated
Chest clear to auscultation
Abdomen soft and nontender
No pedal edema
No facial droop good strength bilateral upper extremities and lower extremities
Says some thing is smelling in there
Able to say his name
Then asked ' Are you a physician'?
confused at baseline.
# Acute hypoxic respiratory insufficiency
Likely secondary to COVID-19
Continue doxycycline for anti-inflammatory properties for now
Likely started COVID-19 infection on Tuesday-started Paxlovid. Hold statin
Stopped steroids with dementia
Patient off of oxygen
# TME likely secondary to above
Underlying dementia
Pleasant confused
# Conjunctivitis -continue ciprofloxacin eyedrops
# Hypertension-restart amlodipine tomorrow
# Hyperlipidemia-hold statin till he completes Paxlovid
# History of depression and anxiety-continue Celexa, Ativan outpatient doses
# Senile dementia-continue memantine
# DVT prophylaxis-Lovenox
# DNR
Discussed with nursing
D/W case management.
More than 30 minutes spent in discharge including
Final examination of the patient
Summarizing hospital stay
Instructions for continuing care to all relevant caregivers
Preparation of discharge records, prescriptions, and referral forms
Total time spent (in minutes): 31 min
Part of this note was created using voice recognition system. Occasional wrong word or��sound alike� substitutions may have inadvertently occurred due to the inherent limitations of voice recognition software. If noted kindly bring it to my
attention for correction.
Anticipated Discharge: Today
Subjective/Interval History
-
Date of Service: October 03, 2024
Objective Data
-
Vital Signs:
Vital Signs
Temp Pulse Resp BP Pulse Ox
97.4 F 53 16 127/73 93
10/03/24 07:00 10/03/24 07:00 10/03/24 07:00 10/03/24 07:00 10/03/24 10:02
I&O
10/02/24 10/03/24 10/04/24
06:59 06:59 06:59
Intake Total 1849
Balance 1849
[2024-10-03 11:17] VITALS: BP 145/75
--- NOTE | 2024-10-03 11:19 | W.DS.TRANS ---
Addendum entered and electronically signed by Mony Hernandez MD 10/03/24 14:28:
Dictation-[id number]
Original Note:
DC Summary - Telesales Representative
-
Discharge Instructions:
Discharge Diagnosis/Procedures COVID-19 infection
Hypertension
Hyperlipidemia
Anxiety and depression
Dementia
Diet As tolerated
Activity As tolerated,With assistance
Driving Restrictions No driving
Others Tests Chest x-ray 4 to 6 weeks
Other Services PT
Instructions:
Stand-Alone Forms:
Changes to Home Medications: Yes
Discharge Medications:
DC Medications w/original date entered in [facility]
acetaminophen 325 mg tablet 650 mg PO Q6H PRN mild pain 05/16/24
amlodipine 5 mg tablet 5 mg PO DAILY Blood Pressure 05/16/24
atorvastatin 20 mg tablet 20 mg PO HS High Cholesterol 05/16/24
Held on 10/03/24. Instructions: Resume on 10/07/24.
cyanocobalamin (vitamin B-12) 1,000 mcg tablet (Vitamin B-12) 2,000 mcg PO DAILY Supplement 05/16/24
escitalopram oxalate 5 mg tablet 5 mg PO DAILY Mental Health/Anxiety 05/16/24
lorazepam 0.5 mg tablet 0.5 mg PO Q12H PRN anxiety 05/16/24
memantine 14 mg capsule sprinkle,extended release 24hr 14 mg PO DAILY Mental Health/Anxiety 05/16/24
triamcinolone acetonide 0.1 % topical cream 1 applic topical BID apply to chest and back 05/16/24
zinc oxide-cod liver oil 40 % topical paste (Desitin) 1 applic topical [id number] PRN apply to buttocks for skin redness 10/01/24
cholecalciferol (vitamin D3) 50 mcg (2,000 unit) chewable tablet 100 mcg (2 x 50 mcg (2,000 unit)) PO HS Supplement #0 tabs 10/03/24
ciprofloxacin HCl 0.3 % eye drops 1 drp ophthalmic (eye) Q6 Eye condition #5 mL 10/03/24
doxycycline hyclate 100 mg capsule 100 mg PO BID Lung/breathing issues #6 caps 10/03/24
guaifenesin 600 mg tablet, extended release 12 hr 600 mg PO Q12 Cough #10 tabs 10/03/24
qxfdxymbtfoa-aoz-ljmhu acid-vit K-lycop 400 mcg-20 mcg-370 mcg tablet (Men's 50 Plus Multivitamin) 2 tab PO HS Supplement #0 tabs 10/03/24
nirmatrelvir 300 mg (150 mg x2)-ritonavir 100 mg tablet,dose pack (Paxlovid) 1 ea PO BID covid #30 ea 10/03/24
polyethylene glycol 3350 17 gram oral powder packet 17 g PO DAILYPRN PRN constipation #30 ea 10/03/24
Home Medication Changes
new
ciprofloxacin HCl 0.3 % eye drops 1 drp ophthalmic (eye) Q6 Eye condition #5 mL 10/03/24
doxycycline hyclate 100 mg capsule 100 mg PO BID Lung/breathing issues #6 caps 10/03/24
guaifenesin 600 mg tablet, extended release 12 hr 600 mg PO Q12 Cough #10 tabs 10/03/24
avhdiyjbhpwv-jwp-scjgy acid-vit K-lycop 400 mcg-20 mcg-370 mcg tablet (Men's 50 Plus Multivitamin) 2 tab PO HS Supplement #0 tabs 10/03/24
nirmatrelvir 300 mg (150 mg x2)-ritonavir 100 mg tablet,dose pack (Paxlovid) 1 ea PO BID covid #30 ea 10/03/24
polyethylene glycol 3350 17 gram oral powder packet 17 g PO DAILYPRN PRN constipation #30 ea 10/03/24
Pending Results: No
--- NOTE | 2024-10-03 11:46 | CM ---
CM following re: discharge [planning.
Reviewed pt's chart, spoke to pt's son Cheo [phone], spoke to [facility] unit truck sales representative Tere [phone]. CM left a message to pt's daughter Lurdes HYDE.
Discharge order noted. Pt's daughter and son Cheo are aware, expressed their agreement. IMM reviewed with pt's daughter Lurdes and son Cheo, placed on chart, pt has a copy.
CM spoke to [facility] unit RN Tere [phone] and she confirmed that pt is accepted for admission today.
A referral to [facility] made.
to arrange ambulance transport BLS. PMNC completed and left with UC.
[facility] phone number for nursing report: [phone]
Discharge instructions fax: [phone]
[facility] fax: [phone]
[facility] fax: [phone]
D/C plan: return back to [facility] with resumptions of [facility], [facility] and staff support,
== END 2024-10-03 14:03 | disposition home health service (06) | DRG 871 ==
LOC: 2 NORTH 16:43
PROVIDERS: Emergency Medicine; Physician Assistant; ADMITTING PHYSICIAN Internal Medicine; ATTENDING PHYSICIAN Hospitalist; EMERGENCY PHYSICIAN Emergency Medicine; FAMILY PHYSICIAN Internal Medicine
DX: A41.9 Sepsis, unspecified organism (principal); U07.1 COVID-19; F02.83 Dementia in other diseases classified elsewhere, unspecified severity, with mood disturbance; F02.84 Dementia in other diseases classified elsewhere, unspecified severity, with anxiety; I10 Essential (primary) hypertension; E78.00 Pure hypercholesterolemia, unspecified; F32.A Depression, unspecified; H10.9 Unspecified conjunctivitis; Z66 Do not resuscitate
CPT/HCPCS: 51701; 71045; 80048; 80053; 81003; 81015; 83036; 83605; 84145; 85025; 87040; 87070; 87449; 87502; 87811; 87899; 92610; 93005; 94760; 96361; 96374; 97163; 99285

== ENCOUNTER 2024-12-30 10:27 | Emergency (ER) | payer OTHER, SELFPAY ==
[2024-12-30 10:36] VITALS: BP 127/71
[2024-12-30 10:37] LABS: Glucose - Point of Care 119 mg/dl (70-99)
[2024-12-30 10:51] LABS: Hematocrit 40.6 % (39.0-52.0); Hemoglobin 13.6 g/dL (13.0-18.0); Mean Corp Hgb Conc. 33.5 g/dL (33.0-37.0); Mean Corpuscular Volume 94.0 fL (80.0-94.0); Nucleated Red Blood Cells % 0 % (-); Platelet Count 223 10^3/uL (130-400); Red Cell Dist. Width 13.6 % (11.5-14.5)
[2024-12-30 10:57] LABS: INR 1.02; PT 13.7 Sec (11.4-14.6)
[2024-12-30 10:58] LABS: APTT 29.5 Sec (23.4-35.0)
[2024-12-30 11:00] VITALS: BP 124/68
--- NOTE | 2024-12-30 11:04 | ED.GENMED ---
History of Present Illness
General
Chief Complaint: Facial Problem
Time Seen by Provider: 12/30/24 10:35
History of Present Illness
History of Present Illness:
79-year-old male with history of dementia and hypertension presenting to the emergency department with concern of right facial droop. Patient arrives from nursing facility. They report that he woke up about an hour prior to arrival and was noted
to have a right facial droop. When they tried to feed him breakfast he was dribbling food out of his mouth. Last normal was last evening before patient went to bed. Patient himself is very limited historian given his dementia. Patient denies any
weakness to his arms or legs or any decrease sensation. He denies any additional acute medical
Phy Exam
Physical Exam
Physical Exam:
General: Well-appearing, no clinical signs of dehydration, nontoxic and in no acute distress
HEENT: protecting airway
Neck: appears supple
CV: Normal heart rate, regular rhythm
Resp: No accessory muscle use, no increased work of breathing, lungs clear to auscultation bilaterally
Abd: No distention
Extremities: No deformities, no swelling
Neuro: alert, right facial droop, moderate. Disoriented to place and time
: deferred
Rectal: deferred
Psych: Normal affect
Skin: Intact
Scores
NIH Stroke Score
Level of Consciousness: 0 - Alert
LOC Questions: 1-Answers one correctly
LOC Commands: 0-Performs both correctly
Best Horizontal Gaze: 0-Normal
Visual Domingo: 0=Normal, no visual loss
Facial Palsy: 2=Partial paralysis
Motor - Right Arm: 0=No drift 10 seconds
Motor - Left Arm: 0=No drift 10 seconds
Motor - Right Le-No drift 5 seconds
Motor - Left Le-No drift 5 seconds
Limb Ataxia: 0-Absent
Sensation: 0-Normal
Best Language: 0-No aphasia
Dysarthria: 0-Normal
Extinction and Inattention: 0-No abnormality
NIH Total Score:: 3
Course
Orders/Labs/Results
Orders:
Orders
12/30/24 10:37
CT Head & Neck Angio W/wo IV Urgent
Comment:
Reason For Exam: right facial droop
CT Head W/o Iv Contrast Urgent
Comment:
Reason For Exam: right facial droop
12/30/24 10:38
Electrocardiogram (*1) Stat
Reason for Study: Other
Other Reason for Exam: neuro symptoms
CT Brain Perfusion Urgent
Comment:
Reason For Exam: right facial droop
EKG- Treatment ONCE
12/30/24 10:41
Complete Blood Count/With Diff Urgent
Comprehensive Metabolic Panel Urgent
PTT Urgent
Prothrombin Time Urgent
12/30/24 10:47
Speech Screening from [facility]ner Routine
Abnormal Lab Results
12/30/24 12/30/24
10:35 10:41
RBC 4.32 L 10^6/uL
(4.70-6.10)
MCH 31.5 H pg
(27.0-31.0)
MPV 10.5 H fL
(7.4-10.4)
Absolute Monos (auto) 0.7 H 10^3/uL
(0.1-0.6)
Immature Gran % 0.6 H %
(0-0.5)
Lymphocytes % 18.2 L %
(20.5-51.1)
Monocytes % 11.2 H %
(1.7-9.3)
Chloride 109 H mmol/L
(98-107)
Glucose 103 H mg/dl
(70-99)
POC Glucose 119 H mg/dl
(70-99)
12/30/24 10:41
12/30/24 10:41
Vital Signs
Initial and Last Documented VS:
Initial Vital Signs
Pulse Resp Pulse Ox
64 14 94
12/30/24 10:32 12/30/24 10:32 12/30/24 10:32
Last Documented Vital Signs
Temp Pulse Resp BP Pulse Ox
97.9 F 58 17 124/68 93
12/30/24 10:34 12/30/24 11:15 12/30/24 11:15 12/30/24 11:00 12/30/24 11:15
MDM/Problems Addressed
MDM/Problems Addressed:
79-year-old male with history of hypertension and hyperlipidemia presenting to the emergency department for right facial droop. Vital signs are normal.
On exam patient is well-appearing, no acute distress. 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 No other lateralizing focal neurologic deficits. Patient woke up with the
symptoms, so in keeping with stroke protocol, not TNK candidate. Last normal was reportedly last evening. Patient very limited story given his profound dementia. Did call and update daughter who denies any known history of strokes in the past.
Plan for CT brain imaging and continued monitoring
13:00 -patient's CTs are negative, without any signs of acute stroke or occlusions. In discussion with neurology, no present indication for MRI given strong clinical suspicion for Lyles's palsy. However if symptoms or not improving in 3 weeks, MRI
can be considered. Recommendation for eyepatch, add on Lyme progressive test, steroids and antivirals. Did discuss results with family at bedside. Return precautions discussed and patient verbalized understanding
*Pulse Oximetry
SaO2: 95
Oxygen Mode of Delivery: Room air
Patient hypoxic: no
*Critical Care Note
Total Time (30-74mins, 75-104mins- exclusive of procedures): Not Applicable
ED Attending Note
-
Portions of this chart may have been created with voice recognition software.� Occasional wrong word or��sound alike� substitutions may have occurred due to the inherent limitations of voice recognition software.
Discharge Plan
Departure
Prescriptions:
No Action
acetaminophen 325 mg Tablet
650 mg PO Q6H PRN (Reason: mild pain)
atorvastatin 20 mg Tablet
20 mg PO HS
cyanocobalamin (vitamin B-12) [Vitamin B-12] 1,000 mcg Tablet
2,000 mcg PO DAILY
amlodipine 5 mg Tablet
5 mg PO DAILY
triamcinolone acetonide 0.1 % Cream
1 applic TOPICAL BID
lorazepam 0.5 mg Tablet
0.5 mg PO Q12H PRN (Reason: anxiety)
escitalopram oxalate 5 mg Tablet
5 mg PO DAILY
memantine 14 mg Capsule,Sprinkle,Er 24hr
14 mg PO DAILY
Desitin 40 % Paste
1 applic TOPICAL [id number] PRN (Reason: apply to buttocks for skin redness)
ciprofloxacin HCl 0.3 % Drops
1 drp ophthalmic (eye) Q6 Qty: 5 0RF
guaifenesin 600 mg Tablet Extended Release 12hr
600 mg PO Q12 Qty: 10 0RF
Paxlovid 300 mg (150 mg x 2)-100 mg Tablets,Dose Pack
1 ea PO BID Qty: 30 0RF
polyethylene glycol 3350 17 gram Powder In Packet
17 g PO DAILYPRN PRN (Reason: constipation) Qty: 30 0RF
doxycycline hyclate 100 mg capsule
100 mg PO BID Qty: 6 0RF
Men's 50 Plus Multivitamin 400-20-370 mcg Tablet
2 tab PO HS Qty: 0 0RF
cholecalciferol (vitamin D3) 50 mcg (2,000 unit) Tablet,Chewable
100 mcg PO HS Qty: 0 0RF
Referrals:
Evan Soto DO [Family Provider]
Interventions
Interventions:
*Risk Screen - Suicide Last Done: 12/30/24 10:34
*General Assessment Last Done: 12/30/24 10:34
*Neglect/Abuse Screening Last Done: 12/30/24 10:34
*ED- Fall Risk Assessment Last Done: 12/30/24 10:34
*ED COVID-19 Vaccine History Last Done: 12/30/24 10:34
ED- Neurological Assessment Last Done: 12/30/24 10:43
ED-Skin Assessment Last Done: 12/30/24 10:43
Discharge Date and Time
Print Language: IRISH
[2024-12-30 11:23] LABS: ALT (SGPT) 28 U/L (0-50); AST (SGOT) 22 U/L (17-59); Alkaline Phosphatase 68 U/L (38-126); Blood Urea Nitrogen 18 mg/dl (9-20); Calcium 9.2 mg/dl (8.4-10.2); Chloride 109 mmol/L (98-107); Glucose 103 mg/dl (70-99); Potassium 3.9 mmol/L (3.5-5.1); Sodium 143 mmol/L (135-145); Total Protein 6.5 g/dl (6.3-8.2); eGFR > 60.00
[2024-12-30 11:33] LABS: Albumin 3.9 g/dl (3.5-5.0); Carbon Dioxide 27 mmol/L (22-30)
[2024-12-30] MEDS: VALTREX 1000 MG PO (13:27)
[2024-12-30] MEDS: DELTASONE 60 MG PO (13:27)
[2024-12-30 16:06] VITALS: BP 102/83
[2024-12-31 12:46] LABS: Lyme Antibody Screen, EIA Negative (Negative)
== END 2024-12-30 16:15 | disposition home or self-care (01) ==
LOC: EMR 10:27
PROVIDERS: EMERGENCY PHYSICIAN Student in an Organized Health Care Education/Training Program; FAMILY PHYSICIAN Internal Medicine
DX: G51.0 Bell's palsy (principal); I10 Essential (primary) hypertension; E78.5 Hyperlipidemia, unspecified; F03.90 Unspecified dementia, unspecified severity, without behavioral disturbance, psychotic disturbance, mood disturbance, and anxiety
CPT/HCPCS: 99284; 0042T; 70450; 70496; 70498; 80053; 82962; 85025; 85610; 85730; 86618; 93005; Q9967